=== PATIENT | female | born 1955 | race Caucasian/White ===

== ENCOUNTER 2016-11-04 12:27 | Inpatient (IN) ==
[2016-11-04] MEDS ORDERED: Ipratropium/Albuterol Neb 3 ML IH ONE (12:43)
[2016-11-04] MEDS ORDERED: methylPREDNISolone 125 MG/2 ML VIAL IVP ONE (12:43)
[2016-11-04] MEDS ORDERED: Albuterol 2.5 MG/3 ML NEBULIZER IH ONE (12:43)
[2016-11-04] MEDS ORDERED: Ondansetron 4 MG/2 ML VIAL IVP ONE (12:43)
[2016-11-04] MEDS ORDERED: *HR* Morphine 2 MG/ML SYRINGE IVP ONE (12:43)
--- NOTE | 2016-11-04 12:47 | Emergency Department Note ---
Disposition Clinical Impression: Anemia Qualifiers: Anemia type: unspecified type Qualified Code(s): D64.9 - Anemia, unspecified Rhabdomyolysis Qualifiers: Rhabdomyolysis type: traumatic Encounter type: initial encounter Qualified Code (s): T79.6XXA - Traumatic ischemia of muscle, initial encounter Inferior pubic ramus fracture Qualifiers: Encounter type: initial encounter Fracture type: closed Laterality: left Qualified Code(s): S32.592A - Other specified fracture of left pubis, initial encounter for closed fracture Disposition: Admitted As Inpatient Condition: Good Referrals: NO,PCP [Primary Care Provider] - Forms: ED Satisfaction Letter Time of Disposition: 16:36 Fall HPI - General Chief Complaint: ED Fall Stated Complaint: Confusion,fall Time Seen by Provider: 11/04/16 12:34 Source: patient, EMS Mode of arrival: EMS Limitations: no limitations Nursing Notes Reviewed: Yes Vital Signs Reviewed: Yes - History of Present Illness HPI Narrative: 61-year-old female transported by EMS after apparently falling out of bed. History obtained from the patient is that she has chronic pain all over, her feet were hurting, she went to get out of bed and she fell last night. No loss of consciousness. Back in bed. She got up again this morning and fell again. She states she "hurts all over". Her worst pain is in her thoracic and lumbar spine area, and left hip area. No loss of consciousness. She denies head injury. Her family reported that she seemed confused. EMS states she might have been "a little confused" when they got there, but it is clear now. She admits to being "a little congested" since she fell yesterday. She admits to a nonproductive cough. Pt Subjective Complaint: fall Onset (ago): day(s) Fall From: standing Fall Witnessed: no Place Fall Occurred: home Loss of Consciousness: none Prolonged Down Time?: no Symptoms Prior to Fall: none Context: tripped/slipped Location of injury: back, other (Left hip) Severity: severe Quality: sharp Associated symptoms (after fall): Reports: other (Cough and congestion) - Related Data Home Medications Medication Instructions Recorded Confirmed Aspirin 81 mg PO DAILY 06/24/15 11/04/16 Clopidogrel [Plavix] 75 mg PO DAILY 06/24/15 11/04/16 Dicyclomine [Bentyl] 10 mg PO TID PRN 06/24/15 11/04/16 Fluticasone Propionate Nasal 1 spray NS DAILY 06/24/15 11/04/16 [Flonase] Gabapentin [Neurontin] 600 mg PO TID 06/24/15 11/04/16 Insulin ASPART [NovoLOG] 0 unit SQ TIDWM 06/24/15 11/04/16 Insulin Glargine [Lantus] 45 unit SQ BID 06/24/15 11/04/16 Methocarbamol [Robaxin] 500 mg PO Q8HR 06/24/15 11/04/16 Metoprolol [Lopressor] 100 mg PO DAILY 06/24/15 11/04/16 Omeprazole [PriLOSEC] 20 mg PO BID 06/24/15 11/04/16 Paroxetine HCl [Paroxetine] 40 mg PO DAILY 06/24/15 11/04/16 HYDROcodone/Acet 10/325 mg [[place] 1 tab PO Q6HR 11/04/16 11/04/16 10-325 mg] Allergies Allergy/AdvReac Type Severity Reaction Status Date / Time Penicillins [PCN] Allergy Hives Verified 06/24/15 22:07 All systems ED: reviewed and negative except as stated. Constitutional: Denies: fever, chills Eyes: Denies: vision change ENT ED: Denies: ear pain, throat pain Cardiovascular: Denies: chest pain Respiratory: Reports: cough, wheezes. Denies: sputum production Gastrointestinal: Denies: abdominal pain, nausea, vomiting, diarrhea Genitourinary: Denies: urgency, dysuria, frequency Musculoskeletal: Reports: as per HPI (Left hip), back pain (Thoracic and lumbar) Integumentary: Denies: abrasion Neurological: Denies: weakness, numbness, paresthesias Fall PMH - Past Medical History Medical history: Reports: arthritis, cancer, CHF, COPD, DVT, diabetes, hyperlipidemia, hypertension, myocardial infarction, other Psychiatric history: Reports: anxiety, depression - Social History Smoking Status: Light tobacco smoker Alcohol use: Reports: none Drug use: Reports: none Physical Exam - General Limitations: no limitations General appearance: alert, in no apparent distress - Head Head exam: atraumatic, normocephalic - Eye Eye exam: Present: PERRL, EOMI. Absent: scleral icterus, conjunctival injection - ENT ENT exam: normal oropharynx, mucous membranes moist, TM's normal bilaterally - Neck Neck exam: Present: normal inspection, full ROM, trachea midline. Absent: tenderness - Respiratory Respiratory exam: Present: wheezes (Mild bilateral expiratory), other (No rales or rhonchi). Absent: respiratory distress - Cardiovascular Cardiovascular exam: Present: regular rate, normal rhythm, normal heart sounds - Abdominal Exam Abdominal exam: Present: soft, Non-Tender, other (Obese) - Rectal Exam Rectal exam: Present: normal inspection, normal rectal tone, hemorrhoids. Absent: black stool, bloody stool, fecal impaction, mass, tenderness - Extremities Exam Extremities exam: Present: normal inspection, full ROM, tenderness (Left lateral hip. Pain on range of motion left hip. No deformity present.), normal capillary refill. Absent: pedal edema - Back Exam Back exam: Present: tenderness (Diffuse mid and lower thoracic and upper lumbar tenderness, poorly localized. Range of motion is limited secondary to pain. Limited flexion rotation.) - Neurological Exam Neurological exam: Present: alert, oriented X3, CN II-XII intact, reflexes normal. Absent: motor sensory deficit - Psychiatric Psychiatric exam: Present: normal affect, normal mood - Skin Skin exam: Present: warm, dry, intact, normal color Course - Reevaluation(s) Reevaluation #1: Low hemoglobin results returned. Her hemoglobin was 10.7 and June 2015. Her hemoglobin was 7.8 on 09/20/16. It is 6.9 today. Her BUNs was normal 27/12/16 , they were 13 and 0.97 respectively. Her CPK came back significantly elevated today. Her BUN/creatinine are elevated. IV fluids were initiated, a bolus and maintenance fluids. 2 units of packed red blood cells were ordered. A rectal exam was done and a stool Hemoccult was sent to the lab. Time: 14:43 Reevaluation #2: Stress test results with patient. Discussed treatment plan and admission with patient. She is agreeable with treatment plan. I spoke with Dr. Blanchard. He is agreeable with admission. Time: 16:34 Vital Signs Temperature 98.6 F 11/04/16 12:31 Pulse Rate 83 11/04/16 12:31 Respiratory Rate 18 11/04/16 12:31 Blood Pressure 131/85 11/04/16 12:31 O2 Sat by Pulse Oximetry 96 11/04/16 12:31 Temperature 98.6 F 11/04/16 16:10 Pulse Rate 88 11/04/16 16:10 Respiratory Rate 16 11/04/16 16:10 Blood Pressure 124/59 11/04/16 16:10 O2 Sat by Pulse Oximetry 98 11/04/16 16:10 Oxygen Delivery Oxygen Delivery Nasal Cannula Fall - MDM Narrative Medical decision making narrative: Differential includes but is not limited to fracture, contusion, dislocation, bronchitis, COPD exacerbation, pneumonia, congestive heart failure, head injury Evidence of fracture in her thoracic or lumbar spine. She does have a in P her pubic ramus fracture on the left. Her BUN/creatinine creatinine are elevated from her baseline, they were normal in early September. This could be related to an elevated CPK, possibly from being down on the floor longer than she reports. This could represent rhabdomyolysis. Radiographically she has no effusion and some increase vascularization. Clinically she does not have congestive heart failure. In light of her elevated CPK and increased creatinine I did go ahead and initiate hydration. I ordered 2 units of packed red blood cells. I spoke with the hospitalist, Dr. Blanchard. He is agreeable with admission, monitoring, continued hydration, transfusion of blood. - Lab Data Lab results reviewed: Yes I reviewed the patient's lab results. Result diagrams: 11/04/16 13:25 11/04/16 13:25 Lab Results 11/04/16 11/04/16 11/04/16 Range/Units 13:25 13:25 13:25 WBC 9.9 (4.3-11.1) K/mcL RBC 3.28 L (3.82-4.97) M/mcL Hgb 6.9 L (11.5-15.4) g/dL Hct 24.0 L (35.3-44.9) % MCV 73.2 L (83.0-100.0) fL MCH 21.0 L (28.0-33.3) pg MCHC 28.8 L (31.6-35.5) g/dL RDW 18.1 H (11.5-14.5) % Plt Count 480 H (140-400) K/mcL MPV 9.2 L (9.4-12.4) fL Immature Gran % 0.5 (0-4) % Seg Neutrophils % 72.8 % Lymphocytes % 16.1 % Monocytes % 8.2 % Eosinophils % 2.0 % Basophils % 0.4 % Neutrophils # 7.2 (1.6-8.9) K/mcL Lymphocytes # 1.6 (0.6-4.6) K/mcL Monocytes # 0.8 (0.0-1.3) K/mcL Eosinophils # 0.2 (0.0-0.6) K/mcL Basophils # 0.0 (0.0-0.2) K/mcL Platelet Estimate Slight increase H (Normal) Hypochromasia Present A (Not Present) Anisocytosis 1+ A (Not Present) Microcytosis Present A (Not Present) Tear Drop Cells 1+ A (Not Present) Ovalocytes 1+ A (Not Present) Sodium 134 L (136-145) mEq/L Potassium 4.4 (3.5-4.5) mEq/L Chloride 102 (98-109) mEq/L Carbon Dioxide 21 (19-29) mEq/L BUN 28 H (7-20) mg/dL Creatinine 2.16 H (0.57-1.11) mg/dL Est GFR ( Amer) 28 L (> 60) Est GFR (Non-Af Amer) 23 L (> 60) BUN/Creatinine Ratio 13 (6-26) Glucose 54 L (70-99) mg/dL Calculated Osmolality 281 (280-300) Calcium 9.5 (8.6-10.8) mg/dL Total Bilirubin 0.3 (0.2-1.2) mg/dL AST 35 H (5-34) Units/L ALT 18 (0-55) Units/L Alkaline Phosphatase 99 (38-126) Units/L Creatine Kinase (29-168) Units/L Troponin I 0.08 H* (0-0.03) ng/mL B-Natriuretic Peptide (0-100) pg/mL Serum Total Protein 6.9 (6.0-8.3) g/dL Albumin 3.6 (3.5-5.0) g/dL Globulin 3.3 (2.4-3.5) g/dL Albumin/Globulin Ratio 1.1 (1.1-2.2) Urine Color (Yellow) Urine Clarity (Clear) Urine pH (5.0-8.0) pH Units Ur Specific [place] (1.010-1.025) Urine Protein (Neg-Trace) mg/dL Urine Glucose (UA) (Normal) mg/dL Urine Ketones (Negative) mg/dL Urine Blood (Negative) Urine Nitrite (Negative) Urine Bilirubin (Negative) Urine Urobilinogen (Normal) mg/dL Ur Leukocyte Esterase (Negative) Urine Microscopic WBC (0-3) per hpf Ur Squamous Epith Cells (None-Few) per lpf Hyaline Casts (None-Few) per lpf Urine Mucus (Few) Ur Culture Indicated? (NO) Stool Occult Blood (Negative) Blood Type Antibody Screen Crossmatch 11/04/16 11/04/16 11/04/16 Range/Units 13:25 13:25 14:50 WBC (4.3-11.1) K/mcL RBC (3.82-4.97) M/mcL Hgb (11.5-15.4) g/dL Hct (35.3-44.9) % MCV (83.0-100.0) fL MCH (28.0-33.3) pg MCHC (31.6-35.5) g/dL RDW (11.5-14.5) % Plt Count (140-400) K/mcL MPV (9.4-12.4) fL Immature Gran % (0-4) % Seg Neutrophils % % Lymphocytes % % Monocytes % % Eosinophils % % Basophils % % Neutrophils # (1.6-8.9) K/mcL Lymphocytes # (0.6-4.6) K/mcL Monocytes # (0.0-1.3) K/mcL Eosinophils # (0.0-0.6) K/mcL Basophils # (0.0-0.2) K/mcL Platelet Estimate (Normal) Hypochromasia (Not Present) Anisocytosis (Not Present) Microcytosis (Not Present) Tear Drop Cells (Not Present) Ovalocytes (Not Present) Sodium (136-145) mEq/L Potassium (3.5-4.5) mEq/L Chloride (98-109) mEq/L Carbon Dioxide (19-29) mEq/L BUN (7-20) mg/dL Creatinine (0.57-1.11) mg/dL Est GFR ( Amer) (> 60) Est GFR (Non-Af Amer) (> 60) BUN/Creatinine Ratio (6-26) Glucose (70-99) mg/dL Calculated Osmolality (280-300) Calcium (8.6-10.8) mg/dL Total Bilirubin (0.2-1.2) mg/dL AST (5-34) Units/L ALT (0-55) Units/L Alkaline Phosphatase (38-126) Units/L Creatine Kinase 1524 H (29-168) Units/L Troponin I (0-0.03) ng/mL B-Natriuretic Peptide 302 H (0-100) pg/mL Serum Total Protein (6.0-8.3) g/dL Albumin (3.5-5.0) g/dL Globulin (2.4-3.5) g/dL Albumin/Globulin Ratio (1.1-2.2) Urine Color (Yellow) Urine Clarity (Clear) Urine pH (5.0-8.0) pH Units Ur Specific [place] (1.010-1.025) Urine Protein (Neg-Trace) mg/dL Urine Glucose (UA) (Normal) mg/dL Urine Ketones (Negative) mg/dL Urine Blood (Negative) Urine Nitrite (Negative) Urine Bilirubin (Negative) Urine Urobilinogen (Normal) mg/dL Ur Leukocyte Esterase (Negative) Urine Microscopic WBC (0-3) per hpf Ur Squamous Epith Cells (None-Few) per lpf Hyaline Casts (None-Few) per lpf Urine Mucus (Few) Ur Culture Indicated? (NO) Stool Occult Blood Negative (Negative) Blood Type Antibody Screen Crossmatch 11/04/16 11/04/16 11/04/16 Range/Units 15:00 15:00 16:01 WBC (4.3-11.1) K/mcL RBC (3.82-4.97) M/mcL Hgb (11.5-15.4) g/dL Hct (35.3-44.9) % MCV (83.0-100.0) fL MCH (28.0-33.3) pg MCHC (31.6-35.5) g/dL RDW (11.5-14.5) % Plt Count (140-400) K/mcL MPV (9.4-12.4) fL Immature Gran % (0-4) % Seg Neutrophils % % Lymphocytes % % Monocytes % % Eosinophils % % Basophils % % Neutrophils # (1.6-8.9) K/mcL Lymphocytes # (0.6-4.6) K/mcL Monocytes # (0.0-1.3) K/mcL Eosinophils # (0.0-0.6) K/mcL Basophils # (0.0-0.2) K/mcL Platelet Estimate (Normal) Hypochromasia (Not Present) Anisocytosis (Not Present) Microcytosis (Not Present) Tear Drop Cells (Not Present) Ovalocytes (Not Present) Sodium (136-145) mEq/L Potassium (3.5-4.5) mEq/L Chloride (98-109) mEq/L Carbon Dioxide (19-29) mEq/L BUN (7-20) mg/dL Creatinine (0.57-1.11) mg/dL Est GFR ( Amer) (> 60) Est GFR (Non-Af Amer) (> 60) BUN/Creatinine Ratio (6-26) Glucose (70-99) mg/dL Calculated Osmolality (280-300) Calcium (8.6-10.8) mg/dL Total Bilirubin (0.2-1.2) mg/dL AST (5-34) Units/L ALT (0-55) Units/L Alkaline Phosphatase (38-126) Units/L Creatine Kinase (29-168) Units/L Troponin I 0.06 H* (0-0.03) ng/mL B-Natriuretic Peptide (0-100) pg/mL Serum Total Protein (6.0-8.3) g/dL Albumin (3.5-5.0) g/dL Globulin (2.4-3.5) g/dL Albumin/Globulin Ratio (1.1-2.2) Urine Color Yellow (Yellow) Urine Clarity Clear (Clear) Urine pH 5.0 (5.0-8.0) pH Units Ur Specific [place] 1.010 (1.010-1.025) Urine Protein Negative (Neg-Trace) mg/dL Urine Glucose (UA) Normal (Normal) mg/dL Urine Ketones Negative (Negative) mg/dL Urine Blood Small H (Negative) Urine Nitrite Negative (Negative) Urine Bilirubin Negative (Negative) Urine Urobilinogen Normal (Normal) mg/dL Ur Leukocyte Esterase Negative (Negative) Urine Microscopic WBC 0-3 (0-3) per hpf Ur Squamous Epith Cells Few (None-Few) per lpf Hyaline Casts Few (None-Few) per lpf Urine Mucus Few (Few) Ur Culture Indicated? NO (NO) Stool Occult Blood (Negative) Blood Type A POSITIVE Antibody Screen NEGATIVE Crossmatch See Detail - Radiology Data Radiology results reviewed: Yes I reviewed the patient's radiology results. ITS Impressions Chest X-Ray 11/04/16 12:43 IMPRESSION: 1. Right basilar atelectasis. 2. Pulmonary vascular congestion, possible bilateral perihilar edema, suspected trace bilateral effusions, and mild cardiomegaly, suggesting pulmonary edema. 3. Small to moderate hiatal hernia. D/ / Mj Norman MD / Mj Norman MD Interpreting Provider: Mj Norman MD Head CT 11/04/16 12:43 IMPRESSION: No acute intracranial abnormality. D/ / Braeden Guevara MD / Braeden Guevara MD Interpreting Provider: Braeden Guevara MD Hip X-Ray 11/04/16 12:43 IMPRESSION: 1. New nondisplaced fracture of the left inferior pubic ramus. 2. Status post ORIF of comminuted intertrochanteric left hip fracture. The appearance is grossly stable compared to August 2016. D/ / Timmy Spencer MD / Timmy Spencer MD Interpreting Provider: Timmy Spencer MD Lumbar Spine CT 11/04/16 12:43 IMPRESSION: No acute abnormality in the lumbar spine. D/ / Tyler Hays MD / Tyler Hays MD Interpreting Provider: Tyler Hays MD Thoracic Spine CT 11/04/16 12:43 IMPRESSION: No evidence acute fracture. Moderate diffuse degenerative disc disease within the thoracic spine. Limited evaluation of the cervicothoracic junction due to patient motion artifact. D/ / 11/04/2016 15:27:34 Bhupinder Garcia MD / shruthi Interpreting Provider: Bhupinder Garcia MD - EKG Data EKG attestation: Yes I reviewed and interpreted this EKG. EKG results narrative: Sinus rhythm, rate of 81, nonspecific ST-T changes. Rhythm strip shows sinus rhythm with rate of 81, FL 147 ms, QRS 106 ms with no other ectopy as interpreted by me. This is compared to a tracing dated 03/01, with some minimal increase in flattening of T waves in the lateral leads noted today, no other changes.
[2016-11-04 13:41] LABS: Basophils % 0.4 %; Eosinophils # 0.2 K/mcL (0.0-0.6); Hemoglobin 6.9 g/dL (11.5-15.4); Immature Granulocytes % 0.5 % (0-4); Lymphocytes # 1.6 K/mcL (0.6-4.6); Lymphocytes % 16.1 %; Mean Corpuscular HGB Conc 28.8 g/dL (31.6-35.5); Mean Corpuscular Volume 73.2 fL (83.0-100.0); Mean Platelet Volume 9.2 fL (9.4-12.4); Monocytes # 0.8 K/mcL (0.0-1.3); Monocytes % 8.2 %; Neutrophils # 7.2 K/mcL (1.6-8.9); Platelet Count 480 K/mcL (140-400); Red Blood Count 3.28 M/mcL (3.82-4.97); Red Cell Distribution Width 18.1 % (11.5-14.5); Segmented Neutrophils % 72.8 %
[2016-11-04 13:59] LABS: Albumin 3.6 g/dL (3.5-5.0); Albumin/Globulin Ratio 1.1 (1.1-2.2); Bilirubin,Total 0.3 mg/dL (0.2-1.2); Calcium 9.5 mg/dL (8.6-10.8); Globulin 3.3 g/dL (2.4-3.5); Potassium 4.4 mEq/L (3.5-4.5); Total Protein 6.9 g/dL (6.0-8.3)
[2016-11-04 14:24] LABS: Anisocytosis 1+ (Not Present); Hypochromasia Present (Not Present); Microcytosis Present (Not Present); Ovalocytes 1+ (Not Present); Tear Drop Cells 1+ (Not Present)
[2016-11-04] MEDS ORDERED: 0.9 % Sodium Chloride 1,000 ML IVC ONE (14:36)
[2016-11-04] MEDS ORDERED: 0.9 % Sodium Chloride 1,000 ML IVC SCH ×2 (14:45→17:20)
[2016-11-04 16:06] LABS: Bilirubin,Urine Negative (Negative); Blood,Urine Small (Negative); Clarity,Urine Clear (Clear); Color,Urine Yellow (Yellow); Glucose,Urine (UA) Normal (Normal); Ketones,Urine Negative (Negative); Leukocyte Esterase,Urine Negative (Negative); Nitrite,Urine Negative (Negative); Protein,Urine Negative (Neg-Trace); Urobilinogen,Urine Normal (Normal)
[2016-11-04 16:27] LABS: Hyaline Casts,Urine Few per lpf (None-Few); Squamous Epithelial Cell,Urine Few per lpf (None-Few); WBC,Urine 0-3 per hpf (0-3)
[2016-11-04 16:28] LABS: Mucus,Urine Few (Few)
[2016-11-04] MEDS ORDERED: Ondansetron 4 MG/2 ML VIAL IVP PRN (17:20)
[2016-11-04] MEDS ORDERED: Naloxone 0.4 MG/ML INJ IVP PRN (17:20)
[2016-11-04] MEDS ORDERED: *HR* HYDROcodone/Acet 10/325 mg TABLET PO SCH (18:00)
[2016-11-04 18:59] LABS: Immature Reticulocyte % 34.9 % (11.0-38.0); Retculocyte # 0.06 M/mcL (0.05-0.10); Reticulocyte % 1.8 % (1.6-2.8)
--- NOTE | 2016-11-04 19:03 | Electrocardiograph Report ---
[address] [place], [place] [address] Test Date: 2016-11-04 Pat Name: Carol Jackman Department: [id number] Room: [facility] Gender: F Epilepsy Physician: [id number] : 1955 Requested By: Gabe Garza Order Number: [id number] Reading MD: Emilio Garcia MD Measurements Intervals [place] Rate: 81 P: 23 HI: 147 QRS: 31 QRSD: 106 T: 15 QT: 346 QTc: 383 Interpretive Statements SINUS RHYTHM Electronically Signed On 11-04-2016 19:01:45 EDT by Emilio Garcia MD
[2016-11-04] MEDS ORDERED: NON-FORMULARY MEDICATION 1 EACH EACH (Insulin Glargine [Lantus] 45 UNIT) SQ SCH (21:00)
[2016-11-04] MEDS: Gabapentin 300 MG CAPSULE PO SCH (21:12)
[2016-11-04] MEDS: Insulin DETEMIR 100 UNIT/ML X5UNITS SQ SCH (21:12)
[2016-11-04] MEDS: 0.9 % Sodium Chloride 1,000 ML IVC SCH (21:12)
[2016-11-04] MEDS ORDERED: 0.9 % Sodium Chloride 250 ML ONE (21:18)
[2016-11-04 21:50] LABS: Iron 13 mcg/dL (50-170)
[2016-11-04 22:11] LABS: Ferritin 14 ng/ml (5-204)
[2016-11-04 22:17] LABS: Folate 13.4 ng/mL (7.0-31.4)
[2016-11-05] MEDS: *HR* HYDROcodone/Acet 10/325 mg TABLET PO PRN ×4 (00:43→22:16)
[2016-11-05] MEDS: *HR* Enoxaparin 30 MG/0.3 ML SYRINGE SQ SCH (05:17)
[2016-11-05] MEDS: Gabapentin 300 MG CAPSULE PO SCH ×3 (08:12→19:59)
[2016-11-05] MEDS: Fluticasone Propionate Nasal 50 MCG/SPRAY BOTTLE NS SCH (08:14)
[2016-11-05] MEDS ORDERED: Aspirin 81 MG TAB.CHEW PO SCH (09:00)
[2016-11-05] MEDS: Insulin DETEMIR 100 UNIT/ML X5UNITS SQ SCH ×2 (09:44→19:59)
[2016-11-05 10:01] LABS: Calcium 9.5 mg/dL (8.6-10.8); Potassium 5.1 mEq/L (3.5-4.5)
[2016-11-05] MEDS ORDERED: *HR* FentaNYL PATCH 25 MCG PATCH TD SCH (11:00)
--- NOTE | 2016-11-05 11:00 | Internal Med History&Physical ---
Date of Encounter: 11/05/16 Time of Encounter: 10:25 Assessment and Plan (1) Inferior pubic ramus fracture Current visit: Yes Status: Acute She will be given scheduled and prn analgesics. Physical therapy and occupational therapy consultations will be ordered. Further workup will be done as needed. Qualifiers: Encounter type: initial encounter Fracture type: closed Laterality: left Qualified Code(s): S32.592A - Other specified fracture of left pubis, initial encounter for closed fracture (2) Azotemia Current visit: Yes Status: Acute Acute. Creatinine was 0.97 on 09/20/2016. Give IV fluids and monitor renal indices. (3) Vitamin D deficiency Current visit: Yes Status: Chronic Vitamin D level was 12 on 10/18/2014. We will recheck level in a.m. (4) Anemia Current visit: Yes Status: Chronic Consistent with iron deficiency. We will give iron dextran and monitor CBC. Discontinue aspirin for now and continue Plavix Qualifiers: Anemia type: iron deficiency Iron deficiency anemia type: unspecified iron deficiency Qualified Code(s): D50.9 - Iron deficiency anemia, unspecified (5) DM type 2 (diabetes mellitus, type 2) Current visit: Yes Status: Chronic Hemoglobin A1c was 7.3% on 09/20/2016. Continue Lantus/Levemir and do Accu- Cheks with SSI. Qualifiers: Diabetes mellitus complication status: without complication Diabetes mellitus truck terminal manager insulin use: with truck terminal manager use Qualified Code(s): E11.9 - Type 2 diabetes mellitus without complications; Z79.4 - shelter (current) use of insulin Internal Medicine - H&P: HPI Chief complaint: Fall and pelvic fracture Admitted From: Home Plans for Post Hospital Care: Home History of present illness: Ms. Jackman is a 61 year old female who came to emergency room stating she was attempting to get out of bed and walk and fell to the floor. She reports she lost her balance. There was no loss of consciousness. She typically walks with a walker but the walker was not at bedside. She had immediate pain in her pelvic area. She call for family members in the home who then called the squad. She was evaluated in emergency room and found to have a left inferior pubic ramus fracture. She also had azotemia and anemia. She was admitted to [facility] for ongoing care needs. Her musk skeletal history is significant for having tip fracture 2014 with ORIF. She has DJD but no known gout or osteoporosis. Her hematologic history is significant for long-standing iron deficiency anemia. She does not presently take ferrous sulfate. She takes aspirin and Plavix for CAD. She has had right breast CA diagnosed 1996 and underwent partial mastectomy which was apparently curative. She has no other blood disorders or malignancies. Past Med Surg Social Fam HX - Past Medical History Medical history: arthritis, cancer, CHF, COPD, DVT, diabetes, hyperlipidemia, hypertension, myocardial infarction, other Psychiatric history: anxiety, depression - Social History Smoking Status: Light tobacco smoker Smokeless Tobacco Status: No Alcohol use: none Drug use: none Internal Medicine - H&P: Meds Aspirin 81 mg PO DAILY 06/24/15 [History] Clopidogrel [Plavix] 75 mg PO DAILY 06/24/15 [History] Dicyclomine [Bentyl] 10 mg PO TID PRN 06/24/15 [History] Fluticasone Propionate Nasal [Flonase] 1 spray NS DAILY 06/24/15 [History] Gabapentin [Neurontin] 600 mg PO TID 06/24/15 [History] Insulin ASPART [NovoLOG] 0 unit SQ TIDWM 06/24/15 [History] Insulin Glargine [Lantus] 45 unit SQ BID 06/24/15 [History] Methocarbamol [Robaxin] 500 mg PO Q8HR 06/24/15 [History] Metoprolol [Lopressor] 100 mg PO DAILY 06/24/15 [History] Omeprazole [PriLOSEC] 20 mg PO BID 06/24/15 [History] Paroxetine HCl [Paroxetine] 40 mg PO DAILY 06/24/15 [History] HYDROcodone/Acet 10/325 mg [[place] 10-325 mg] 1 tab PO Q6HR 11/04/16 [History] Allergies Penicillins [PCN] Allergy (Verified 06/24/15 22:07) Hives All Systems PM: A 10-system review of systems was performed and is negative for pertinent findings except as documented above in the HPI. Review of systems: Gen.: Her weight has been stable at approximately 100 kg in the past year Cardiovascular: She has had 5 MIs per history. She has had 6 stents placed with her most recent heart catheter November 2015 following most recent MT. She claims she was told in the past she has CHF but echocardiograms done January and May 2014 showed normal systolic and diastolic function with LVEF of 65%. She reports chronic left leg DVT and was placed on Xarelto at one time. This was discontinued because of intestinal bleeding. She had IVC filter placed. She continues to use aspirin and Plavix for CAD. She thinks she had pulmonary embolus in 1982. Respiratory: She smokes since age 25 never up to 1 pack per day. She had PFTs approximately 2004 without a diagnosis of COPD made. She does not wear home oxygen and has not been tested for sleep apnea. GI: She has GERD/hiatal hernia but denies disorders of her liver gallbladder or exocrine pancreas : She denies hematuria dysuria or kidney stones or other kidney or bladder disorders Neurologic: She denies large distribution strokes or seizures. Endocrine: She was diagnosed with DM 2 approximately 2001. She has hyperlipidemia but no known thyroid disease. Hematology/oncology: As per history of present illness Psychiatric: She has anxiety and depression [place] skeletal: As per history of present illness - Constitutional Vitals: Temp Pulse Resp BP Pulse Ox 99.5 F 72 18 165/76 94 11/05/16 10:46 11/05/16 10:46 11/05/16 10:46 11/05/16 10:46 11/05/16 10:46 Exam: Gen.: She is a well-developed well-nourished female appears in no severe distress at present time at rest. She does complain of significant pain on movement. HEENT: Head is atraumatic and normocephalic. Eyes: EOMI. There is no scleral icterus. Mouth: Mucosa is moist. Neck: Supple and nontender. There is no thyromegaly or adenopathy noted. Heart: Regular without murmurs gallops or ectopics Lungs: No wheezes or crackles are heard. Abdomen: Soft and nontender. No masses or guarding are noted. Extremities: There is no cyanosis edema or clubbing noted. Dorsalis pedis and posterior tibial pulses are 1-2 over 2 bilaterally. She has DJD changes of her hands. Neurologic: Mental status: She is talkative and a good historian. Cranial nerves: Smile is symmetric. Forehead wrinkles bilaterally. Tongue protrudes midline. EOMI. Motor: There is no pronator drift. Cerebellar: Finger to nose intact bilaterally. Skin: Warm and dry Internal Med - H&P Results - Labs CBC & Chem 7: 11/04/16 13:25 11/05/16 08:50 Labs: BMP 11/05/16 08:50 Sodium 137 Potassium 5.1 H Chloride 106 Carbon Dioxide 19 BUN 25 H Creatinine 1.12 H Glucose 200 H Calcium 9.5
[2016-11-05 11:41] LABS: Basophils % 0.1 %; Hematocrit 30.4 % (35.3-44.9); Immature Granulocytes % 0.7 % (0-4); Lymphocytes # 0.9 K/mcL (0.6-4.6); Lymphocytes % 8.1 %; Mean Corpuscular HGB Conc 29.6 g/dL (31.6-35.5); Mean Corpuscular Hemoglobin 22.7 pg (28.0-33.3); Mean Corpuscular Volume 76.8 fL (83.0-100.0); Mean Platelet Volume 8.9 fL (9.4-12.4); Monocytes # 0.8 K/mcL (0.0-1.3); Monocytes % 6.6 %; Neutrophils # 9.6 K/mcL (1.6-8.9); Platelet Count 503 K/mcL (140-400); Red Blood Count 3.96 M/mcL (3.82-4.97); Segmented Neutrophils % 84.5 %
[2016-11-05] MEDS: ALPRAZolam 0.5 MG TABLET PO PRN ×2 (11:56→22:20)
[2016-11-05] MEDS ORDERED: SODIUM CHLORIDE 0.9% IVPB ONE (12:30)
[2016-11-05] MEDS ORDERED: IRON DEXTRAN COMPLEX IVPB ONE (12:30)
[2016-11-05] MEDS ORDERED: D5% in Water 1,000 ML IVC PRN (12:36)
[2016-11-05] MEDS ORDERED: *HR* Dextrose 50 % in Water (Syg) 50 ML SYRINGE IVP PRN (12:36)
[2016-11-05] MEDS ORDERED: Dextrose Gel 15 GM PO PRN ×2 (12:36)
[2016-11-05] MEDS: Insulin LISPRO 300 UNITS/3 ML VIAL SQ SCH ×2 (16:10→19:57)
[2016-11-06 05:05] LABS: Basophils % 0.2 %; Eosinophils # 0.1 K/mcL (0.0-0.6); Eosinophils % 0.3 %; Hematocrit 28.6 % (35.3-44.9); Hemoglobin 8.7 g/dL (11.5-15.4); Lymphocytes # 2.1 K/mcL (0.6-4.6); Lymphocytes % 12.8 %; Mean Corpuscular HGB Conc 30.4 g/dL (31.6-35.5); Mean Corpuscular Hemoglobin 22.5 pg (28.0-33.3); Mean Corpuscular Volume 73.9 fL (83.0-100.0); Mean Platelet Volume 9.1 fL (9.4-12.4); Monocytes # 1.4 K/mcL (0.0-1.3); Monocytes % 8.6 %; Neutrophils # 12.4 K/mcL (1.6-8.9); Nucleated Red Blood Cells 0.2 /100 WBC (0); Platelet Count 550 K/mcL (140-400); Red Blood Count 3.87 M/mcL (3.82-4.97); Red Cell Distribution Width 18.7 % (11.5-14.5); Segmented Neutrophils % 77.1 %
[2016-11-06 05:53] LABS: BUN/Creatinine Ratio 25 (6-26); Blood Urea Nitrogen 23 mg/dL (7-20); Calcium 9.5 mg/dL (8.6-10.8); Carbon Dioxide 21 mEq/L (19-29); Chloride 103 mEq/L (98-109); Osmolality,Calculated 280 (280-300); Potassium 4.3 mEq/L (3.5-4.5); Sodium 135 mEq/L (136-145); eGFR For African Americans > 60 (> 60); eGFR For Non-African Americans > 60 (> 60)
[2016-11-06 06:00] LABS: Glucose 34 mg/dL (70-99)
[2016-11-06] MEDS: *HR* Enoxaparin 30 MG/0.3 ML SYRINGE SQ SCH (06:14)
[2016-11-06] MEDS: *HR* HYDROcodone/Acet 10/325 mg TABLET PO PRN ×2 (06:15→14:46)
[2016-11-06] MEDS: Insulin LISPRO 300 UNITS/3 ML VIAL SQ SCH ×4 (07:51→19:26)
[2016-11-06] MEDS: Fluticasone Propionate Nasal 50 MCG/SPRAY BOTTLE NS SCH (07:58)
[2016-11-06] MEDS: Gabapentin 300 MG CAPSULE PO SCH ×3 (07:58→19:45)
[2016-11-06] MEDS: 0.9 % Sodium Chloride 1,000 ML IVC SCH (08:01)
[2016-11-06] MEDS: Insulin DETEMIR 100 UNIT/ML X5UNITS SQ SCH ×2 (10:23→19:45)
--- NOTE | 2016-11-06 10:43 | Internal Med Progress Note ---
Date of Encounter: 11/06/16 Time of Encounter: 10:25 - Assessment and plan (1) Inferior pubic ramus fracture Current Visit: Yes Status: Acute Assessment and plan: November 06. Continue analgesics and therapy as ordered. Qualifiers: Encounter type: initial encounter Fracture type: closed Laterality: left Qualified Code(s): S32.592A - Other specified fracture of left pubis, initial encounter for closed fracture (2) Azotemia Current Visit: Yes Status: Acute Assessment and plan: November 06. Improved today. Creatinine has decreased to 0.91 with estimated GFR greater than 60. (3) Vitamin D deficiency Current Visit: Yes Status: Chronic Assessment and plan: November 06. Repeat vitamin D level is pending. (4) Anemia Current Visit: Yes Status: Chronic Assessment and plan: November 06. Remain off aspirin but continue Plavix. She has received IV iron dextran. We will monitor CBC. Qualifiers: Anemia type: iron deficiency Iron deficiency anemia type: unspecified iron deficiency Qualified Code(s): D50.9 - Iron deficiency anemia, unspecified (5) DM type 2 (diabetes mellitus, type 2) Current Visit: Yes Status: Chronic Assessment and plan: November 06. Continue Lantus/Levemir and Accu-Cheks with SSI. Qualifiers: Diabetes mellitus complication status: without complication Diabetes mellitus long term care pharmacist insulin use: with long term care pharmacist use Qualified Code(s): E11.9 - Type 2 diabetes mellitus without complications; Z79.4 - terminal clerk (current) use of insulin (6) Leukocytosis Current Visit: Yes Status: Acute Assessment and plan: November 06. WBC has risen to 16.1 K with 77.1 segs. Will check chest x-ray and recheck labs in a.m. Qualifiers: Leukocytosis type: unspecified Qualified Code(s): D72.829 - Elevated white blood cell count, unspecified - Subjective Interval history: November 06. She has pain in her right upper chest area. Nursing staff reported her IV infiltrated as iron dextran infusion was completing yesterday. - Constitutional Vitals: Temp Pulse Resp BP Pulse Ox 98.0 F 68 16 152/61 94 11/06/16 10:10 11/06/16 10:10 11/06/16 10:10 11/06/16 10:10 11/06/16 10:10 Exam: She has discoloration in her upper anterior shoulder and anterior chest extending into her right upper outer breast area. There does not appear to be infection. Her lungs show a few scattered rhonchi. Heart is regular without murmurs gallops or ectopics. I reviewed her medications and lab results. Internal Medicine: Result - Labs CBC & Chem 7: 11/06/16 04:07 11/06/16 04:07 Labs: Short CBC 11/05/16 11/06/16 Range/Units 11:14 04:07 WBC 11.4 H 16.1 H (4.3-11.1) K/mcL Hgb 9.0 L D 8.7 L (11.5-15.4) g/dL Hct 30.4 L 28.6 L (35.3-44.9) % Plt Count 503 H 550 H (140-400) K/mcL Neutrophils # 9.6 H 12.4 H (1.6-8.9) K/mcL BMP 11/06/16 04:07 Sodium 135 L Potassium 4.3 Chloride 103 Carbon Dioxide 21 BUN 23 H Creatinine 0.91 Glucose 34 L* Calcium 9.5 Consult Discharge Plan - Plan Referrals: NO,PCP [Primary Care Provider] - 1 week
[2016-11-06] MEDS: ALPRAZolam 0.5 MG TABLET PO PRN (14:46)
[2016-11-06] MEDS: Methocarbamol 500 MG TABLET PO PRN (14:46)
[2016-11-07] MEDS: ALPRAZolam 0.5 MG TABLET PO PRN ×2 (00:32→08:44)
[2016-11-07] MEDS: *HR* HYDROcodone/Acet 10/325 mg TABLET PO PRN ×2 (00:32→07:45)
[2016-11-07 05:10] LABS: Basophils % 0.5 %; Eosinophils # 0.2 K/mcL (0.0-0.6); Eosinophils % 2.3 %; Hematocrit 28.4 % (35.3-44.9); Hemoglobin 8.4 g/dL (11.5-15.4); Immature Granulocytes % 0.5 % (0-4); Lymphocytes % 23.1 %; Mean Corpuscular HGB Conc 29.6 g/dL (31.6-35.5); Mean Corpuscular Hemoglobin 22.4 pg (28.0-33.3); Mean Corpuscular Volume 75.7 fL (83.0-100.0); Mean Platelet Volume 9.2 fL (9.4-12.4); Monocytes % 10.9 %; Neutrophils # 5.5 K/mcL (1.6-8.9); Platelet Count 491 K/mcL (140-400); Red Blood Count 3.75 M/mcL (3.82-4.97); Red Cell Distribution Width 19.7 % (11.5-14.5); Segmented Neutrophils % 62.7 %
[2016-11-07 05:30] LABS: BUN/Creatinine Ratio 18 (6-26); Blood Urea Nitrogen 14 mg/dL (7-20); Calcium 9.5 mg/dL (8.6-10.8); Carbon Dioxide 25 mEq/L (19-29); Chloride 105 mEq/L (98-109); Glucose 53 mg/dL (70-99); Osmolality,Calculated 286 (280-300); Potassium 4.3 mEq/L (3.5-4.5); Sodium 139 mEq/L (136-145); eGFR For African Americans > 60 (> 60); eGFR For Non-African Americans > 60 (> 60)
[2016-11-07] MEDS ORDERED: *HR* Enoxaparin 40 MG/0.4 ML SYRINGE SQ SCH (06:00)
[2016-11-07] MEDS: Insulin LISPRO 300 UNITS/3 ML VIAL SQ SCH ×2 (07:32→12:07)
[2016-11-07] MEDS: Gabapentin 300 MG CAPSULE PO SCH (07:45)
[2016-11-07] MEDS: Methocarbamol 500 MG TABLET PO PRN (08:44)
--- NOTE | 2016-11-07 10:24 | Discharge Summary ---
Date of Encounter: 11/07/16 Time of Encounter: 10:10 - Discharge Diagnosis (1) Inferior pubic ramus fracture Priority: Primary Status: Acute Qualifiers: Encounter type: initial encounter Fracture type: closed Laterality: left Qualified Code(s): S32.592A - Other specified fracture of left pubis, initial encounter for closed fracture (2) Azotemia Priority: Secondary Status: Resolved (3) Vitamin D deficiency Priority: Secondary Status: Chronic (4) Anemia Priority: Secondary Status: Chronic Qualifiers: Anemia type: iron deficiency Iron deficiency anemia type: unspecified iron deficiency Qualified Code(s): D50.9 - Iron deficiency anemia, unspecified (5) DM type 2 (diabetes mellitus, type 2) Priority: Secondary Status: Chronic Qualifiers: Diabetes mellitus complication status: without complication Diabetes mellitus senior living insulin use: with senior living use Qualified Code(s): E11.9 - Type 2 diabetes mellitus without complications; Z79.4 - [facility] (current) use of insulin (6) Leukocytosis Priority: Secondary Status: Resolved Qualifiers: Leukocytosis type: unspecified Qualified Code(s): D72.829 - Elevated white blood cell count, unspecified - Discharge Medications Prescriptions: Bumetanide [Bumex] 0.5 mg PO DAILY 30 Days Cholecalciferol (D-3) [Vitamin D] 1,000 unit PO DAILY 30 Days Lisinopril [Zestril] 10 mg PO DAILY 365 Days Metoprolol XL (24 HR) Succ [Toprol XL] 100 mg PO DAILY 365 Days Home Medications: Clopidogrel [Plavix] 75 mg PO DAILY 06/24/15 [History] Dicyclomine [Bentyl] 10 mg PO TID PRN 06/24/15 [History] Fluticasone Propionate Nasal [Flonase] 1 spray NS DAILY 06/24/15 [History] Gabapentin [Neurontin] 600 mg PO TID 06/24/15 [History] Insulin ASPART [NovoLOG] 0 unit SQ TIDWM 06/24/15 [History] Insulin Glargine [Lantus] 45 unit SQ BID 06/24/15 [History] Methocarbamol [Robaxin] 500 mg PO Q8HR 06/24/15 [History] Paroxetine HCl [Paroxetine] 40 mg PO DAILY 06/24/15 [History] ALPRAZolam [Xanax 0.5 MG Tablet] 0.5 mg PO Q4H PRN #0 tablet 11/07/16 [Rx] Bumetanide [Bumex] 0.5 mg PO DAILY 30 Days 11/07/16 [Rx] Cholecalciferol (D-3) [Vitamin D] 1,000 unit PO DAILY 30 Days 11/07/16 [Rx] FentaNYL PATCH [Duragesic] 25 mcg TD Q72H patch.td72 11/07/16 [Rx] HYDROcodone/Acet 10/325 mg [[place] 10-325 mg] 1 tab PO Q6HR PRN #0 11/07/16 [Rx] Lisinopril [Zestril] 10 mg PO DAILY 365 Days 11/07/16 [Rx] Metoprolol XL (24 HR) Succ [Toprol XL] 100 mg PO DAILY 365 Days 11/07/16 [Rx] Omeprazole [PriLOSEC] 20 mg PO DAILY #0 11/07/16 [Rx] Allergies/Adverse Reactions: Allergies Penicillins [PCN] Allergy (Verified 06/24/15 22:07) Hives Date of admission: 11/04/16 16:59 Primary care physician: Janie Cadena CNP Consults: 11/05/16 10:47 Consult to Occupational Therapy [CONS] Routine Comment: Evaluate, develop and implement POC Reason for Consult: Fall, pelvic fracture - Patient Status Disposition: Transfer Hospital Swing Bed Condition: Good Functional capacity at discharge: uses cane/walker Overall status at discharge: patient is progressing back to baseline - Discharge Instructions - Diet and Activity Activity: as per physical therapy Diet: diabetic diet Hospital course: Ms. Jackman is a 61 year old female who came to emergency room stating she was attempting to get out of bed and walk and fell to the floor. She reports she lost her balance. There was no loss of consciousness. She typically walks with a walker but the walker was not at bedside. She had immediate pain in her pelvic area. She call for family members in the home who then called the squad. She was evaluated in emergency room and found to have a left inferior pubic ramus fracture. She also had azotemia and anemia. She was admitted to [facility] for ongoing care needs. Initial orders were written by the emergency room physician. I saw her on November 05 and performed the history and physical. She was given scheduled and prn analgesics for pain control. She had physical therapy and occupational therapy evaluation with ongoing interventions. She made satisfactory progress. It was felt to benefit from swing bed stay for ongoing therapy interventions. She was given IV fluids and her azotemia resolved with BUN and creatinine being 14 and 0.78 respectively on the day of discharge. Her BMP peptide kaela 20,004 and 48 the day of discharge so she will be started on low-dose Bumex and lisinopril. She will be changed from Lopressor to Toprol- XL. Vitamin D level returned slightly low at 26. She will be started on vitamin D supplement. Anemia testing showed iron 13, ferritin 14, B12 306, and folate 13.4. She was given iron dextran IV. There was some extravasation of the iron dextran subcutaneously with discoloration of the skin around the infusion site in the right anterior deltoid area dissecting distally into the right upper outer breast area. I told her the discoloration might fade but might not completely resolve. On November 07 arrangements were complete for her to be discharged into swing bed. - Time Spent with Patient Total time spent providing and/or coordinating discharge services: - Constitutional Vitals: Temp Pulse Resp BP Pulse Ox 99.1 F 81 18 168/70 94 11/07/16 06:24 11/07/16 06:24 11/07/16 06:24 11/07/16 06:24 11/07/16 06:24
[2016-11-07] MEDS ORDERED: Insulin DETEMIR 100 UNIT/ML X5UNITS SQ SCH (11:03)
[2016-11-07 11:04] VITALS: BP 141/67
[2016-11-07] MEDS: Insulin DETEMIR 100 UNIT/ML X5UNITS SQ SCH (11:09)
[2016-11-07] MEDS: Fluticasone Propionate Nasal 50 MCG/SPRAY BOTTLE NS SCH (11:09)
== END 2016-11-07 11:45 | disposition other institution (70) | DRG 536 ==
LOC: EMEROOPIK 12:27 → INPPIK 16:59
PROVIDERS: ADMIT Internal Medicine; ATTEND Internal Medicine

== ENCOUNTER 2016-11-07 12:10 | Inpatient (IN) ==
[2016-11-07] MEDS ORDERED: Dextrose Gel 15 GM PO PRN ×2 (12:46)
[2016-11-07] MEDS ORDERED: D5% in Water 1,000 ML IVC PRN (12:46)
[2016-11-07] MEDS ORDERED: *HR* Dextrose 50 % in Water (Syg) 50 ML SYRINGE IVP PRN (12:46)
[2016-11-07] MEDS: Methocarbamol 500 MG TABLET PO SCH ×2 (16:12→22:28)
[2016-11-07] MEDS: Gabapentin 300 MG CAPSULE PO SCH ×2 (16:12→20:12)
[2016-11-07] MEDS: *HR* HYDROcodone/Acet 10/325 mg TABLET PO PRN ×2 (16:13→22:27)
[2016-11-07] MEDS: Insulin LISPRO 300 UNITS/3 ML VIAL SQ SCH ×2 (18:07→20:13)
[2016-11-07] MEDS: Insulin DETEMIR 100 UNIT/ML X5UNITS SQ SCH (20:12)
[2016-11-08 06:02] LABS: Basophils % 0.4 %; Eosinophils # 0.4 K/mcL (0.0-0.6); Eosinophils % 5.1 %; Hematocrit 32.2 % (35.3-44.9); Hemoglobin 9.7 g/dL (11.5-15.4); Immature Granulocytes % 1.1 % (0-4); Lymphocytes # 1.9 K/mcL (0.6-4.6); Lymphocytes % 22.5 %; Mean Corpuscular HGB Conc 30.1 g/dL (31.6-35.5); Mean Corpuscular Hemoglobin 22.6 pg (28.0-33.3); Mean Corpuscular Volume 75.1 fL (83.0-100.0); Mean Platelet Volume 8.9 fL (9.4-12.4); Monocytes # 0.8 K/mcL (0.0-1.3); Monocytes % 9.9 %; Neutrophils # 5.1 K/mcL (1.6-8.9); Platelet Count 523 K/mcL (140-400); Red Blood Count 4.29 M/mcL (3.82-4.97); Red Cell Distribution Width 20.6 % (11.5-14.5)
[2016-11-08 06:07] LABS: INR 1.1; Prothrombin Time 11.6 Seconds (9.4-12.1)
[2016-11-08 06:09] LABS: Activated Partial Thrombo Time 27.3 Seconds (26.0-36.0)
[2016-11-08 06:19] LABS: BUN/Creatinine Ratio 16 (6-26); Blood Urea Nitrogen 11 mg/dL (7-20); Carbon Dioxide 28 mEq/L (19-29); Chloride 105 mEq/L (98-109); Osmolality,Calculated 294 (280-300); Sodium 144 mEq/L (136-145); eGFR For African Americans > 60 (> 60); eGFR For Non-African Americans > 60 (> 60)
[2016-11-08 06:25] LABS: Glucose 37 mg/dL (70-99)
[2016-11-08] MEDS: Insulin LISPRO 300 UNITS/3 ML VIAL SQ SCH ×4 (07:42→20:55)
[2016-11-08] MEDS: *HR* HYDROcodone/Acet 10/325 mg TABLET PO PRN ×3 (08:25→22:13)
[2016-11-08] MEDS: Gabapentin 300 MG CAPSULE PO SCH ×3 (08:25→19:54)
[2016-11-08] MEDS: Metoprolol XL (24 HR) Succ 50 MG TAB.ER.24H PO SCH (08:26)
[2016-11-08] MEDS: Fluticasone Propionate Nasal 50 MCG/SPRAY BOTTLE NS SCH (08:26)
[2016-11-08] MEDS: Cholecalciferol (D-3) 1,000 UNIT TABLET PO SCH (08:26)
[2016-11-08] MEDS: Bumetanide 1 MG TABLET PO SCH (08:27)
[2016-11-08] MEDS: Methocarbamol 500 MG TABLET PO SCH ×2 (08:27→15:43)
[2016-11-08] MEDS ORDERED: *HR* FentaNYL PATCH 25 MCG PATCH TD SCH (09:00)
[2016-11-08] MEDS: Insulin DETEMIR 100 UNIT/ML X5UNITS SQ SCH ×2 (09:32→20:55)
--- NOTE | 2016-11-08 14:21 | Internal Med Progress Note ---
Date of Encounter: 11/08/16 Time of Encounter: 11:25 - Assessment and plan (1) Inferior pubic ramus fracture Current Visit: No Status: Acute Assessment and plan: November 08. Continue therapy interventions. Qualifiers: Encounter type: initial encounter Fracture type: closed Laterality: left Qualified Code(s): S32.592A - Other specified fracture of left pubis, initial encounter for closed fracture (2) Anemia Current Visit: No Status: Chronic Assessment and plan: November 08. We will monitor CBC. Qualifiers: Anemia type: iron deficiency Iron deficiency anemia type: unspecified iron deficiency Qualified Code(s): D50.9 - Iron deficiency anemia, unspecified (3) Azotemia Current Visit: No Status: Resolved Assessment and plan: November 08. Resolved during acute care stay. Monitor renal indices. (4) Vitamin D deficiency Current Visit: No Status: Chronic Assessment and plan: November 08. Vitamin D level was 26. Will continue vitamin D supplement (5) DM type 2 (diabetes mellitus, type 2) Current Visit: No Status: Chronic Assessment and plan: November 08. She had low blood sugar this morning. We will reduce Levemir dose. Qualifiers: Diabetes mellitus complication status: without complication Diabetes mellitus residential insulin use: with residential use Qualified Code(s): E11.9 - Type 2 diabetes mellitus without complications; Z79.4 - senior care (current) use of insulin - Subjective Interval history: November 08. She was hospitalized in acute care November 02- after presenting with a left inferior pubic ramus fracture from a fall at home. She had evaluation and ongoing intervention by physical and occupational therapists with improvement. It was felt she would benefit from swing bed stay prior to returning to independent living. Azotemia resolved IV fluids and medication adjustment. She received iron dextran infusion for iron deficiency anemia. She has no complaints today and feels better overall. - Constitutional Vitals: Temp Pulse Resp BP Pulse Ox 98.7 F 65 18 176/85 95 11/07/16 18:22 11/08/16 07:00 11/08/16 07:00 11/08/16 07:00 11/08/16 07:00 Exam: She has just ambulated from the bathroom with a Rollator walker. She is pleasant and in no acute distress. Her affect is bright and cheerful. I reviewed her medications and lab results. Internal Medicine: Result - Labs CBC & Chem 7: 11/08/16 05:32 11/08/16 05:32 Labs: Short CBC 11/08/16 Range/Units 05:32 WBC 8.3 (4.3-11.1) K/mcL Hgb 9.7 L (11.5-15.4) g/dL Hct 32.2 L (35.3-44.9) % Plt Count 523 H (140-400) K/mcL Neutrophils # 5.1 (1.6-8.9) K/mcL BMP 11/08/16 05:32 Sodium 144 Potassium 4.0 Chloride 105 Carbon Dioxide 28 BUN 11 Creatinine 0.69 Glucose 37 L* Calcium 10.0 - ABG Interpretation ABG results: PT/INR, D-dimer PT 11.6 Seconds (9.4-12.1) 11/08/16 05:32 Consult Discharge Plan - Plan Referrals: Janie Cadena, COMMERCIAL CREDIT SPECIALIST [Primary Care Provider] - 1 week
[2016-11-08] MEDS ORDERED: Nicotine 14 MG PATCH.TD24 TD SCH (15:15)
[2016-11-08] MEDS: Nicotine 21 MG PATCH.TD24 TD SCH (15:43)
[2016-11-08] MEDS: ALPRAZolam 0.5 MG TABLET PO PRN (22:13)
[2016-11-09] MEDS: Methocarbamol 500 MG TABLET PO SCH ×2 (00:10→07:46)
[2016-11-09] MEDS: *HR* HYDROcodone/Acet 10/325 mg TABLET PO PRN ×2 (04:07→10:45)
[2016-11-09] MEDS: ALPRAZolam 0.5 MG TABLET PO PRN (04:26)
[2016-11-09] MEDS: Bumetanide 1 MG TABLET PO SCH (07:46)
[2016-11-09] MEDS: Metoprolol XL (24 HR) Succ 50 MG TAB.ER.24H PO SCH (07:47)
[2016-11-09] MEDS: Gabapentin 300 MG CAPSULE PO SCH (07:47)
[2016-11-09] MEDS: Cholecalciferol (D-3) 1,000 UNIT TABLET PO SCH (07:47)
[2016-11-09] MEDS: Insulin LISPRO 300 UNITS/3 ML VIAL SQ SCH (07:47)
[2016-11-09] MEDS: Fluticasone Propionate Nasal 50 MCG/SPRAY BOTTLE NS SCH (07:47)
[2016-11-09] MEDS: Nicotine 21 MG PATCH.TD24 TD SCH (09:34)
[2016-11-09] MEDS: Insulin DETEMIR 100 UNIT/ML X5UNITS SQ SCH (09:34)
[2016-11-09 10:00] VITALS: BP 146/53
--- NOTE | 2016-11-09 10:02 | Discharge Summary ---
Date of Encounter: 11/09/16 Time of Encounter: 09:50 - Discharge Diagnosis (1) Inferior pubic ramus fracture Priority: Primary Status: Acute Qualifiers: Encounter type: initial encounter Fracture type: closed Laterality: left Qualified Code(s): S32.592A - Other specified fracture of left pubis, initial encounter for closed fracture (2) Anemia Priority: Secondary Status: Chronic Qualifiers: Anemia type: iron deficiency Iron deficiency anemia type: unspecified iron deficiency Qualified Code(s): D50.9 - Iron deficiency anemia, unspecified (3) Azotemia Priority: Secondary Status: Resolved (4) Vitamin D deficiency Priority: Secondary Status: Chronic (5) DM type 2 (diabetes mellitus, type 2) Priority: Secondary Status: Chronic Qualifiers: Diabetes mellitus complication status: without complication Diabetes mellitus skilled nursing insulin use: with skilled nursing use Qualified Code(s): E11.9 - Type 2 diabetes mellitus without complications; Z79.4 - [facility] (current) use of insulin - Discharge Medications Prescriptions: Bumetanide [Bumex] 0.5 mg PO DAILY #15 tablet FentaNYL PATCH [Duragesic] 25 mcg TD Q72H #2 patch.td72 HYDROcodone/Acet 10/325 mg [[place] 10-325 mg] 1 tab PO Q4H PRN #28 tablet PRN Reason: Pain Lisinopril [Zestril] 10 mg PO DAILY #30 tablet Metoprolol Succinate 100 mg PO DAILY #30 tab.er.24h Home Medications: Clopidogrel [Plavix] 75 mg PO DAILY 06/24/15 [History] Dicyclomine [Bentyl] 10 mg PO TID PRN 06/24/15 [History] Fluticasone Propionate Nasal [Flonase] 1 spray NS DAILY 06/24/15 [History] Gabapentin [Neurontin] 600 mg PO TID 06/24/15 [History] Insulin ASPART [NovoLOG] 0 unit SQ TIDWM 06/24/15 [History] Insulin Glargine [Lantus] 40 unit SQ BID 06/24/15 [History] Methocarbamol [Robaxin] 500 mg PO Q8HR 06/24/15 [History] Paroxetine HCl [Paroxetine] 40 mg PO DAILY 06/24/15 [History] Cholecalciferol (D-3) [Vitamin D] 1,000 unit PO DAILY 30 Days 11/07/16 [Rx] Omeprazole [PriLOSEC] 20 mg PO DAILY #0 11/07/16 [Rx] Bumetanide [Bumex] 0.5 mg PO DAILY #15 tablet 11/09/16 [Rx] FentaNYL PATCH [Duragesic] 25 mcg TD Q72H #2 patch.td72 11/09/16 [Rx] HYDROcodone/Acet 10/325 mg [[place] 10-325 mg] 1 tab PO Q4H PRN #28 tablet [Rx] Lisinopril [Zestril] 10 mg PO DAILY #30 tablet 11/09/16 [Rx] Metoprolol Succinate 100 mg PO DAILY #30 tab.er.24h 11/09/16 [Rx] Allergies/Adverse Reactions: Allergies Penicillins [PCN] Allergy (Verified 06/24/15 22:07) Hives Date of admission: 11/07/16 12:28 Primary care physician: Janie Cadena CNP Consults: 11/07/16 12:27 Consult to Occupational Therapy [CONS] Routine Comment: Eval, Develop, and Implement P.O.C. Reason for Consult: Eval, Develop, and Implement P.O.C. Consult to Physical Therapy [CONS] Routine Comment: Eval, Develop, and Implement P.O.C. Reason for Consult: Eval, Develop, and Implement P.O.C. pt had a fall with pelvic fx Consult to [employer] [CONS] Routine Reason for SW Consult: D/C planning - Patient Status Disposition: Home Health Service Functional capacity at discharge: uses cane/walker Overall status at discharge: patient is progressing back to baseline - Discharge Instructions Follow Up With: Janie Cadena CNP [Primary Care Provider] - 1 week - Diet and Activity Activity: as per physical therapy Diet: advance to your usual diet Hospital course: Ms. Jackman is a 61 year old female who was hospitalized in acute care November 02- after presenting with a left inferior pubic ramus fracture from a fall at home. She had evaluation and ongoing intervention by physical and occupational therapists with improvement. It was felt she would benefit from swing bed stay prior to returning to independent living. Azotemia resolved with IV fluids and medication adjustment. She received iron dextran infusion for iron deficiency anemia. She had no new problems develop in swing bed. On November 09 she stated she wished to be discharged home. She stated she was in minimal pain from her inferior pubic ramus fracture. She did have some discomfort in her right lateral chest area where the iron dextran infusion had caused some extravasation. I reminded her the pigmentation might fade but not completely resolve but the pain should resolve over time. She will be given a few days of fentanyl and Percocet for pain control upon discharge. She will follow with her PCP Janie Cadena CNP within 1 week. She will have home health services ordered. - Time Spent with Patient Total time spent providing and/or coordinating discharge services: - Constitutional Vitals: Temp Pulse Resp BP Pulse Ox 97.7 F 97 16 157/78 93 11/09/16 07:09 11/09/16 07:09 11/09/16 07:09 11/09/16 07:09 11/09/16 07:09
--- NOTE | 2016-11-09 10:09 | Physician Discharge Referral ---
Home Health/Hosp Referral Info Transfer to: Home Health Attending Provider: Santo Provider in Charge Post Discharge: PCP (Janie Cadena CNP) - Diagnosis (1) Inferior pubic ramus fracture Priority: Primary Status: Acute (2) Anemia Priority: Secondary Status: Chronic (3) Azotemia Priority: Secondary Status: Resolved (4) Vitamin D deficiency Priority: Secondary Status: Chronic (5) DM type 2 (diabetes mellitus, type 2) Priority: Secondary Status: Chronic - Respiratory Orders Smoking Cessation: Smoking cessation has been advised. For more information, call the [place] Tobacco Quit Line at 6-458-QFOW-NOW. - Diet/Nutrition Diet/Nutrition Orders: No Concentrated Sweets - Activity Activity Orders: Walker - Services Needed Following services are medically necessary services: Nursing, Home Health Aide, Physical Therapy, Occupational Therapy - Transfer Medications Prescriptions: Bumetanide [Bumex] 0.5 mg PO DAILY #15 tablet FentaNYL PATCH [Duragesic] 25 mcg TD Q72H #2 patch.td72 HYDROcodone/Acet 10/325 mg [[place] 10-325 mg] 1 tab PO Q4H PRN #28 tablet PRN Reason: Pain Lisinopril [Zestril] 10 mg PO DAILY #30 tablet Metoprolol Succinate 100 mg PO DAILY #30 tab.er.24h Home Medications: Clopidogrel [Plavix] 75 mg PO DAILY 06/24/15 [History] Dicyclomine [Bentyl] 10 mg PO TID PRN 06/24/15 [History] Fluticasone Propionate Nasal [Flonase] 1 spray NS DAILY 06/24/15 [History] Gabapentin [Neurontin] 600 mg PO TID 06/24/15 [History] Insulin ASPART [NovoLOG] 0 unit SQ TIDWM 06/24/15 [History] Insulin Glargine [Lantus] 40 unit SQ BID 06/24/15 [History] Methocarbamol [Robaxin] 500 mg PO Q8HR 06/24/15 [History] Paroxetine HCl [Paroxetine] 40 mg PO DAILY 06/24/15 [History] Cholecalciferol (D-3) [Vitamin D] 1,000 unit PO DAILY 30 Days 11/07/16 [Rx] Omeprazole [PriLOSEC] 20 mg PO DAILY #0 11/07/16 [Rx] Bumetanide [Bumex] 0.5 mg PO DAILY #15 tablet 11/09/16 [Rx] FentaNYL PATCH [Duragesic] 25 mcg TD Q72H #2 patch.td72 11/09/16 [Rx] HYDROcodone/Acet 10/325 mg [[place] 10-325 mg] 1 tab PO Q4H PRN #28 tablet [Rx] Lisinopril [Zestril] 10 mg PO DAILY #30 tablet 11/09/16 [Rx] Metoprolol Succinate 100 mg PO DAILY #30 tab.er.24h 11/09/16 [Rx] Allergies/Adverse Reactions: Allergies Penicillins [PCN] Allergy (Verified 06/24/15 22:07) Hives Certification: Further, I certify that my clinical findings support that this patient is homebound (i.e. absences from home require considerable and taxing effort and are for medical reasons or hoahaoism services or infrequently or short duration when for other reasons) because: Homebound Reason: Leaving home requires considerable and taxing effort due to condition (Pain secondary to pelvic fracture) Attestation: My signature below is to certify that this patient is under my care and that I, or nurse practitioner, or a physician's help desk assistant working with me, has a face-to -face encounter with this patient.
== END 2016-11-09 11:27 | disposition home health service (06) | DRG 561 ==
LOC: INPPIK 12:28
PROVIDERS: ADMIT Internal Medicine; ATTEND Internal Medicine

== ENCOUNTER 2019-02-02 15:55 | Inpatient (IN) ==
[2019-02-02] MEDS ORDERED: 0.9 % Sodium Chloride 1,000 ML IVC ONE ×2 (15:58→16:09)
--- NOTE | 2019-02-02 15:58 | Emergency Department Note ---
Disposition Clinical Impression: Altered mental status, Hypomagnesemia Disposition: Admitted As Inpatient Condition: Good Referrals: Janie Cadena, REGI [Primary Care Provider] - Forms: ED Satisfaction Letter Time of Disposition: 20:47 Altered Mental Status HPI - General Chief Complaint: ED Altered Mental Status Stated Complaint: AMS Time Seen by Provider: 02/02/19 15:58 Source: patient, EMS Mode of arrival: EMS Limitations: altered mental status Nursing Notes Reviewed: Yes Vital Signs Reviewed: Yes - History of Present Illness HPI Narrative: 63-year-old female presents today with altered mental status. She is brought in by ambulance. She states she has had a cough lately. Patient has no other complaints at this time. She knows what her name is but does not know where she has her when it is. Last known well is unknown as family arrived last night and found her confused at that time. She is not maintained confusion area she did eat last night. She has not taken any of her medications. EMS reported that she did end up taking her Keppra today or her focal seizures. MD complaint: altered mental status, confusion - Related Data Home Medications Medication Instructions Recorded Confirmed Atorvastatin [Lipitor] 40 mg PO HS 01/07/17 12/02/18 Cyclobenzaprine HCl 5 mg PO BID PRN 05/18/18 12/02/18 Gabapentin [Neurontin] 600 mg PO TID 05/18/18 12/02/18 Insulin Glargine,Hum.rec.anlog 41 unit SQ BID 05/18/18 12/02/18 [Basaglar Kwikpen U-100] LevETIRAcetam [Keppra] 500 mg PO BID 05/18/18 12/02/18 Metoprolol Succinate [Toprol Xl] 25 - 50 mg PO QAM 05/18/18 12/02/18 Omeprazole [PriLOSEC] 40 mg PO QAM 05/18/18 12/02/18 Paroxetine HCl [Paxil] 40 mg PO QAM 05/18/18 12/02/18 Amitriptyline [Elavil] 50 mg PO HS 12/02/18 12/02/18 Aspirin [Adult Aspirin Regimen] 81 mg PO QAM 12/02/18 12/02/18 Clopidogrel [Plavix] 75 mg PO HS 12/02/18 12/02/18 Ferrous Gluconate 324 mg PO DAILY 12/02/18 12/02/18 Furosemide [Lasix] 20 mg PO QAM 12/02/18 12/02/18 Insulin ASPART [Novolog Flexpen] 0 unit SQ TIDAC 12/02/18 12/02/18 Levocetirizine Dihydrochloride 5 mg PO QPM PRN 12/02/18 12/02/18 [Allergy Relief (Xyzal)] Metoprolol Succinate [Toprol Xl] 50 mg PO QPM 12/02/18 12/02/18 Allergies Allergy/AdvReac Type Severity Reaction Status Date / Time Penicillins [PCN] Allergy Hives Verified 05/18/18 09:16 rivaroxaban [From Xarelto] Allergy See Verified 05/18/18 09:16 Comments morphine AdvReac See Verified 05/18/18 09:16 Comments NSAIDS (Non-Steroidal AdvReac Palpitation Verified 05/18/18 09:16 Anti-Inflamma s oxycodone [Oxycodone] AdvReac Confusion Verified 05/20/18 05:25 Review of Systems: All other systems are negative except as noted/marked Chart generated with voice recognition software Nursing notes reviewed Old records reviewed Past Medical History - Past Medical History Attestation: Yes The following information was validated with the patient. Source: old records reviewed, nursing notes reviewed Medical history: Reports: arthritis, cancer, CHF, COPD, coronary artery disease, DVT, diabetes, GERD, GI bleed, hyperlipidemia, hypertension, myocardial infarction, pulmonary embolus, seizures, valvular heart disease, other Surgical history: Reports: angioplasty/stent, breast surgery, , cancer surgery, hip replacement, other, IVC filter Psychiatric history: Reports: anxiety, depression ANATOMIC PATHOLOGY ASSISTANT history: Reports: no ANATOMIC PATHOLOGY ASSISTANT history - Social History Smoking Status: Current every day smoker Smokeless Tobacco Status: No Alcohol use: Reports: none Drug use: Reports: none Physical Exam General: NAD, VSS Head: normocephalic, atraumatic Eyes: EOMI, PERRLA mouth: moist mucous membranes Neck: NO CLA, Supple Chest wall: normal rise, no crepitus, no deformity noted Lungs: moving air well, coarse breath sounds no right upper lung [place] clear with coughing Heart: RRR, blowing murmur Abd: soft, nontender, BS normal : deferred MSK: strength equal in all four extremities Ext: moves all four extremities, no obvious deformities Skin: cap refill normal, warm, dry neuro : CN2-12 grossly intact, A&Ox3 Psych: normal affect, not anxious Course Vital Signs O2 Sat by Pulse Oximetry 96 02/02/19 15:56 Temperature 97.3 F L 02/02/19 15:58 Pulse Rate 111 02/02/19 20:27 Respiratory Rate 22 02/02/19 20:27 Blood Pressure 178/93 02/02/19 20:27 O2 Sat by Pulse Oximetry 96 02/02/19 20:27 Oxygen Delivery Oxygen Delivery Room Air Altered Mental Status - MDM Narrative Medical decision making narrative: 63-year-old female who presents today with altered mental status. Family states that they found her this way the night before. Last known well was unknown. Patient has no complaints at this time. Workup initially shows some mild hypomagnesemia but otherwise no acute abnormalities. Her head CT did not show any evidence of this stroke or bleeding. Her chest x-ray is negative. I requested a urinalysis. The nurses been struggling to get a urine from her for couple of hours. She is refusing to void for us and when they tried to do a st raight catheter she is fighting and combative with the nursing staff. I did order some Haldol and Ativan to calm her down so that we can get the urinalysis because at this point her disposition head and is on whether she has an infection in her urine. Her white count is normal she is afebrile making a urinary tract infection less likely but given her age group we cannot completely rule this out without urine. Urine did not show any signs of infection. Patient remains confused and disoriented. I do not this is a TIA or hypertension related or if this is drug related. There is some history of drug abuse per family report. Because of this, I do think patient needs to be monitored overnight. He spoke with Dr. Blanchard who agreed to accept the patient for evaluation overnight and reevaluation in the morning. Hydralazine did seem to help her blood pressure came down to 170 systolic. I w ould not want to drop her any more quickly than that. She will probably need some medications overnight. - Medical Records Medical records reviewed: Yes I reviewed the patient's medical records. - Lab Data Lab results reviewed: Yes I reviewed the patient's lab results. Result diagrams: 02/02/19 16:34 02/02/19 16:34 Lab Results 02/02/19 02/02/19 02/02/19 Range/Units 16:34 16:34 16:34 WBC 6.3 (4.3-11.1) K/mcL RBC 4.50 (3.82-4.97) M/mcL Hgb 11.1 L (11.5-15.4) g/dL Hct 36.1 (35.3-44.9) % MCV 80.2 L (83.0-100.0) fL MCH 24.7 L (28.0-33.3) pg MCHC 30.7 L (31.6-35.5) g/dL RDW 23.9 H (11.5-14.5) % Plt Count 262 (140-400) K/mcL MPV 9.4 (9.4-12.4) fL Immature Gran % 0.5 (0-4) % Seg Neutrophils % 76.8 % Lymphocytes % 15.5 % Monocytes % 5.6 % Eosinophils % 1.1 % Basophils % 0.5 % Neutrophils # 4.8 (1.6-8.9) K/mcL Lymphocytes # 1.0 (0.6-4.6) K/mcL Monocytes # 0.4 (0.0-1.3) K/mcL Eosinophils # 0.1 (0.0-0.6) K/mcL Basophils # 0.0 (0.0-0.2) K/mcL Platelet Estimate Normal (Normal) Microcytosis Present A (Not Present) PT 10.4 (9.4-12.1) Seconds INR 0.9 APTT 31.7 (26.0-36.0) Seconds Sodium 138 (136-145) mEq/L Potassium 4.0 (3.5-5.1) mEq/L Chloride 103 (98-107) mEq/L Carbon Dioxide 27 (23-29) mEq/L BUN 9 (8-23) mg/dL Creatinine 0.75 (0.60-1.20) mg/dL Est GFR ( Amer) > 60 (> 60) Est GFR (Non-Af Amer) > 60 (> 60) BUN/Creatinine Ratio 12 (6-26) Glucose 215 H (70-105) mg/dL Calculated Osmolality 291 (280-300) Lactic Acid (0.5-2.2) mmol/L Calcium 9.1 (8.6-10.3) mg/dL Magnesium 1.4 L (1.6-2.6) mg/dL Total Bilirubin 0.4 (0.3-1.0) mg/dL Direct Bilirubin 0.1 (0.0-0.2) mg/dL Indirect Bilirubin 0.3 (0.0-1.2) mg/dL AST 13 (13-39) Units/L ALT 11 (7-52) Units/L Alkaline Phosphatase 127 H (34-104) Units/L Ammonia (16-53) mcmol/L Troponin I < 0.03 (< 0.04) ng/mL Serum Total Protein 7.0 (6.4-8.9) g/dL Albumin 3.7 (3.5-5.7) g/dL Globulin 3.3 (2.4-3.5) g/dL Albumin/Globulin Ratio 1.1 (1.1-2.2) TSH 1.239 (0.340-5.600) mcIU/mL Urine Color (Yellow) Urine Clarity (Clear) Urine pH (5.0-8.0) pH Units Ur Specific [place] (1.010-1.025) Urine Protein (Neg-Trace) mg/dL Urine Glucose (UA) (Normal) mg/dL Urine Ketones (Negative) mg/dL Urine Blood (Negative) Urine Nitrite (Negative) Urine Bilirubin (Negative) Urine Urobilinogen (Normal) mg/dL Ur Leukocyte Esterase (Negative) Urine Microscopic RBC (0-3) per hpf Ur Squamous Epith Cells (None-Few) per lpf Ur Culture Indicated? (NO) Ur Drug Screen Interp Ethyl Alcohol < 10 (Less than 10) mg/dL 02/02/19 02/02/19 02/02/19 Range/Units 16:34 16:34 19:54 WBC (4.3-11.1) K/mcL RBC (3.82-4.97) M/mcL Hgb (11.5-15.4) g/dL Hct (35.3-44.9) % MCV (83.0-100.0) fL MCH (28.0-33.3) pg MCHC (31.6-35.5) g/dL RDW (11.5-14.5) % Plt Count (140-400) K/mcL MPV (9.4-12.4) fL Immature Gran % (0-4) % Seg Neutrophils % % Lymphocytes % % Monocytes % % Eosinophils % % Basophils % % Neutrophils # (1.6-8.9) K/mcL Lymphocytes # (0.6-4.6) K/mcL Monocytes # (0.0-1.3) K/mcL Eosinophils # (0.0-0.6) K/mcL Basophils # (0.0-0.2) K/mcL Platelet Estimate (Normal) Microcytosis (Not Present) PT (9.4-12.1) Seconds INR APTT (26.0-36.0) Seconds Sodium (136-145) mEq/L Potassium (3.5-5.1) mEq/L Chloride (98-107) mEq/L Carbon Dioxide (23-29) mEq/L BUN (8-23) mg/dL Creatinine (0.60-1.20) mg/dL Est GFR ( Amer) (> 60) Est GFR (Non-Af Amer) (> 60) BUN/Creatinine Ratio (6-26) Glucose (70-105) mg/dL Calculated Osmolality (280-300) Lactic Acid 0.7 (0.5-2.2) mmol/L Calcium (8.6-10.3) mg/dL Magnesium (1.6-2.6) mg/dL Total Bilirubin (0.3-1.0) mg/dL Direct Bilirubin (0.0-0.2) mg/dL Indirect Bilirubin (0.0-1.2) mg/dL AST (13-39) Units/L ALT (7-52) Units/L Alkaline Phosphatase (34-104) Units/L Ammonia 34 (16-53) mcmol/L Troponin I (< 0.04) ng/mL Serum Total Protein (6.4-8.9) g/dL Albumin (3.5-5.7) g/dL Globulin (2.4-3.5) g/dL Albumin/Globulin Ratio (1.1-2.2) TSH (0.340-5.600) mcIU/mL Urine Color Yellow (Yellow) Urine Clarity Clear (Clear) Urine pH 6.5 (5.0-8.0) pH Units Ur Specific [place] 1.025 (1.010-1.025) Urine Protein >=300 H (Neg-Trace) mg/dL Urine Glucose (UA) 250 H (Normal) mg/dL Urine Ketones 40 H (Negative) mg/dL Urine Blood Small H (Negative) Urine Nitrite Negative (Negative) Urine Bilirubin Negative (Negative) Urine Urobilinogen Normal (Normal) mg/dL Ur Leukocyte Esterase Negative (Negative) Urine Microscopic RBC 3-5 H (0-3) per hpf Ur Squamous Epith Cells Few (None-Few) per lpf Ur Culture Indicated? NO (NO) Ur Drug Screen Interp Ethyl Alcohol (Less than 10) mg/dL 02/02/19 Range/Units 19:54 WBC (4.3-11.1) K/mcL RBC (3.82-4.97) M/mcL Hgb (11.5-15.4) g/dL Hct (35.3-44.9) % MCV (83.0-100.0) fL MCH (28.0-33.3) pg MCHC (31.6-35.5) g/dL RDW (11.5-14.5) % Plt Count (140-400) K/mcL MPV (9.4-12.4) fL Immature Gran % (0-4) % Seg Neutrophils % % Lymphocytes % % Monocytes % % Eosinophils % % Basophils % % Neutrophils # (1.6-8.9) K/mcL Lymphocytes # (0.6-4.6) K/mcL Monocytes # (0.0-1.3) K/mcL Eosinophils # (0.0-0.6) K/mcL Basophils # (0.0-0.2) K/mcL Platelet Estimate (Normal) Microcytosis (Not Present) PT (9.4-12.1) Seconds INR APTT (26.0-36.0) Seconds Sodium (136-145) mEq/L Potassium (3.5-5.1) mEq/L Chloride (98-107) mEq/L Carbon Dioxide (23-29) mEq/L BUN (8-23) mg/dL Creatinine (0.60-1.20) mg/dL Est GFR ( Amer) (> 60) Est GFR (Non-Af Amer) (> 60) BUN/Creatinine Ratio (6-26) Glucose (70-105) mg/dL Calculated Osmolality (280-300) Lactic Acid (0.5-2.2) mmol/L Calcium (8.6-10.3) mg/dL Magnesium (1.6-2.6) mg/dL Total Bilirubin (0.3-1.0) mg/dL Direct Bilirubin (0.0-0.2) mg/dL Indirect Bilirubin (0.0-1.2) mg/dL AST (13-39) Units/L ALT (7-52) Units/L Alkaline Phosphatase (34-104) Units/L Ammonia (16-53) mcmol/L Troponin I (< 0.04) ng/mL Serum Total Protein (6.4-8.9) g/dL Albumin (3.5-5.7) g/dL Globulin (2.4-3.5) g/dL Albumin/Globulin Ratio (1.1-2.2) TSH (0.340-5.600) mcIU/mL Urine Color (Yellow) Urine Clarity (Clear) Urine pH (5.0-8.0) pH Units Ur Specific [place] (1.010-1.025) Urine Protein (Neg-Trace) mg/dL Urine Glucose (UA) (Normal) mg/dL Urine Ketones (Negative) mg/dL Urine Blood (Negative) Urine Nitrite (Negative) Urine Bilirubin (Negative) Urine Urobilinogen (Normal) mg/dL Ur Leukocyte Esterase (Negative) Urine Microscopic RBC (0-3) per hpf Ur Squamous Epith Cells (None-Few) per lpf Ur Culture Indicated? (NO) Ur Drug Screen Interp See Below Ethyl Alcohol (Less than 10) mg/dL - Radiology Data Radiology results reviewed: Yes I reviewed the patient's radiology results. EXAMINATION: CT OF THE HEAD WITHOUT CONTRAST 02/02/2019 4:52 pm TECHNIQUE: CT of the head was performed without the administration of intravenous contrast. Dose modulation, iterative reconstruction, and/or weight based adjustment of the mA/kV was utilized to reduce the radiation dose to as low as reasonably achievable. COMPARISON: 02/17/2018 HISTORY: ORDERING SYSTEM PROVIDED HISTORY: altered mental status FINDINGS: Motion limited study, despite repeat acquisition. BRAIN/VENTRICLES: There is no acute intracranial hemorrhage, mass effect or midline shift. No abnormal extra-axial fluid collection. The tejada-white differentiation is maintained without evidence of an acute infarct. There is no evidence of hydrocephalus. ORBITS: The visualized portion of the orbits demonstrate no acute abnormality. SINUSES: Peripheral mucosal thickening of the paranasal sinuses. Mastoids are clear bilaterally. Evidence of previous sinus surgery. SOFT TISSUES/SKULL: No acute abnormality of the visualized skull or soft tissues. CT/CT head/brain wo con IMPRESSION: Motion limited study. No obvious acute intracranial abnormality. Chronic paranasal sinus disease. D/ / Efraín Gilbert MD / Efraín Gilbert MD Interpreting Provider: Efraín Gilbert MD INATION: ONE XRAY VIEW OF THE CHEST 02/02/2019 4:52 pm COMPARISON: 05/19/2018 HISTORY: ORDERING SYSTEM PROVIDED HISTORY: altered mental status FINDINGS: The lungs are without acute focal process. There is no effusion or pneumothorax. The cardiomediastinal silhouette is stable. The osseous structures are stable. Probable large hiatal hernia. XR/XR chest 1V portable IMPRESSION: No acute process. Probable unchanged large hiatal hernia D/ / Mj Denney MD / Mj Denney MD Interpreting Provider: Mj Denney MD - EKG Data EKG attestation: Yes I reviewed and interpreted this EKG. EKG results narrative: EKG interpreted by myself as a sinus rhythm with rate 98 a QTC of [address] elevation TPA Checklist - LKW: 3-4.5 hrs Add. Warnings/Precautions Patient/family understanding: The patient/family members have been counseled and understood the risk, benefit, and alternatives of treatment.
[2019-02-02] MEDS ORDERED: *HR* Metoprolol 5 MG/5 ML VIAL IVP ONE ×2 (16:08→22:13)
[2019-02-02 16:51] LABS: Basophils % 0.5 %; Eosinophils # 0.1 K/mcL (0.0-0.6); Eosinophils % 1.1 %; Hematocrit 36.1 % (35.3-44.9); Hemoglobin 11.1 g/dL (11.5-15.4); Immature Granulocytes % 0.5 % (0-4); Lymphocytes % 15.5 %; Mean Corpuscular HGB Conc 30.7 g/dL (31.6-35.5); Mean Corpuscular Hemoglobin 24.7 pg (28.0-33.3); Mean Corpuscular Volume 80.2 fL (83.0-100.0); Mean Platelet Volume 9.4 fL (9.4-12.4); Monocytes # 0.4 K/mcL (0.0-1.3); Monocytes % 5.6 %; Neutrophils # 4.8 K/mcL (1.6-8.9); Platelet Count 262 K/mcL (140-400); Red Cell Distribution Width 23.9 % (11.5-14.5); Segmented Neutrophils % 76.8 %; White Blood Count 6.3 K/mcL (4.3-11.1)
[2019-02-02 16:53] LABS: INR 0.9; Prothrombin Time 10.4 Seconds (9.4-12.1)
[2019-02-02 16:55] LABS: Activated Partial Thrombo Time 31.7 Seconds (26.0-36.0)
[2019-02-02 17:01] LABS: Alanine Aminotransferase 11 Units/L (7-52); Albumin 3.7 g/dL (3.5-5.7); Albumin/Globulin Ratio 1.1 (1.1-2.2); Alkaline Phosphatase 127 Units/L (34-104); Aspartate Amino Transferase 13 Units/L (13-39); BUN/Creatinine Ratio 12 (6-26); Bilirubin,Direct 0.1 mg/dL (0.0-0.2); Bilirubin,Indirect 0.3 mg/dL (0.0-1.2); Bilirubin,Total 0.4 mg/dL (0.3-1.0); Blood Urea Nitrogen 9 mg/dL (8-23); Calcium 9.1 mg/dL (8.6-10.3); Carbon Dioxide 27 mEq/L (23-29); Chloride 103 mEq/L (98-107); Ethanol < 10 mg/dL (Less than 10); Globulin 3.3 g/dL (2.4-3.5); Glucose 215 mg/dL (70-105); Magnesium 1.4 mg/dL (1.6-2.6); Osmolality,Calculated 291 (280-300); Sodium 138 mEq/L (136-145); eGFR For African Americans > 60 (> 60); eGFR For Non-African Americans > 60 (> 60)
[2019-02-02 17:03] LABS: Troponin I < 0.03 ng/mL (< 0.04)
[2019-02-02 17:17] LABS: Thyroid Stimulating Hormone 1.239 mcIU/mL (0.340-5.600)
[2019-02-02 18:01] LABS: Microcytosis Present (Not Present); Platelet Estimate Normal (Normal)
[2019-02-02] MEDS ORDERED: Lidocaine Jelly 6ml 1 APPL/6 ML JEL.PF.APP MM ONE (18:02)
[2019-02-02] MEDS ORDERED: Haloperidol Lactate 5 MG/ML VIAL IM ONE (18:10)
[2019-02-02] MEDS ORDERED: *HR* LORazepam 2 MG/ML VIAL IVP ONE ×2 (18:10→22:14)
[2019-02-02 20:05] LABS: Bilirubin,Urine Negative (Negative); Blood,Urine Small (Negative); Clarity,Urine Clear (Clear); Color,Urine Yellow (Yellow); Glucose,Urine (UA) 250 mg/dL (Normal); Ketones,Urine 40 mg/dL (Negative); Leukocyte Esterase,Urine Negative (Negative); Nitrite,Urine Negative (Negative); PH,Urine 6.5 pH Units (5.0-8.0); Protein,Urine >=300 mg/dL (Neg-Trace); Specific Gravity,Urine 1.025 (1.010-1.025); Urobilinogen,Urine Normal (Normal)
[2019-02-02 20:13] LABS: Squamous Epithelial Cell,Urine Few per lpf (None-Few)
[2019-02-02 20:51] LABS: Amphetamine Screen,Urine Negative ng/mL (Cutoff=1000); Barbiturate Screen,Urine Negative ng/mL (Cutoff=200); Benzodiazepines Screen,Urine Negative ng/mL (Cutoff=200); Cannabinoid Screen,Urine Negative ng/mL (Cutoff = 50); Cocaine Screen,Urine Negative ng/mL (Cutoff= 300); Opiate Screen,Urine Positive ng/mL (Cutoff=300); Phencyclidine Screen,Urine Negative ng/mL (Cutoff=25)
[2019-02-02] MEDS ORDERED: Naloxone 0.4 MG/ML INJ IVP PRN (21:57)
[2019-02-02] MEDS ORDERED: Acetaminophen 325 MG TABLET PO PRN (21:57)
[2019-02-02] MEDS ORDERED: traMADol 50 MG TABLET PO PRN (22:11)
[2019-02-02] MEDS: 0.9 % Sodium Chloride 1,000 ML IVC SCH (22:25)
[2019-02-03] MEDS: levETIRAcetam 250 MG TABLET PO SCH ×4 (00:01→23:04)
[2019-02-03] MEDS ORDERED: *HR* Metoprolol 5 MG/5 ML VIAL IVP ONE ×3 (03:41→18:58)
[2019-02-03] MEDS ORDERED: *HR* LORazepam 2 MG/ML VIAL IVP ONE (03:42)
[2019-02-03 06:32] LABS: Basophils # 0.1 K/mcL (0.0-0.2); Basophils % 0.6 %; Eosinophils # 0.1 K/mcL (0.0-0.6); Eosinophils % 0.8 %; Hematocrit 38.8 % (35.3-44.9); Immature Granulocytes % 0.5 % (0-4); Lymphocytes # 1.7 K/mcL (0.6-4.6); Mean Corpuscular HGB Conc 30.9 g/dL (31.6-35.5); Mean Corpuscular Hemoglobin 24.2 pg (28.0-33.3); Mean Corpuscular Volume 78.4 fL (83.0-100.0); Mean Platelet Volume 9.2 fL (9.4-12.4); Monocytes # 0.7 K/mcL (0.0-1.3); Monocytes % 7.8 %; Neutrophils # 5.9 K/mcL (1.6-8.9); Platelet Count 311 K/mcL (140-400); Red Blood Count 4.95 M/mcL (3.82-4.97); Red Cell Distribution Width 23.9 % (11.5-14.5); Segmented Neutrophils % 70.3 %; White Blood Count 8.4 K/mcL (4.3-11.1)
[2019-02-03 06:52] LABS: BUN/Creatinine Ratio 9 (6-26); Blood Urea Nitrogen 6 mg/dL (8-23); Calcium 9.3 mg/dL (8.6-10.3); Carbon Dioxide 24 mEq/L (23-29); Chloride 100 mEq/L (98-107); Glucose 195 mg/dL (70-105); Osmolality,Calculated 285 (280-300); Potassium 3.8 mEq/L (3.5-5.1); Sodium 136 mEq/L (136-145); eGFR For African Americans > 60 (> 60); eGFR For Non-African Americans > 60 (> 60)
[2019-02-03] MEDS: Furosemide 20 MG TABLET PO SCH ×2 (08:00→08:10)
[2019-02-03] MEDS: Metoprolol XL (24 HR) Succ 25 MG TAB.ER.24H PO SCH ×2 (08:00→08:11)
--- NOTE | 2019-02-03 09:04 | Electrocardiograph Report ---
[place] [id number] Test Date: 2019-02-02 Pat Name: Carol Jackman Department: EDP-14 Room: [facility] Gender: F Clinical Administrative Coordinator: : 1955 Requested By: Davina Zarate Order Number: [id number] Reading MD: Emilio Garcia Measurements Intervals [place] Rate: 98 P: 75 [place]: 181 QRS: 61 QRSD: 103 T: 27 QT: 350 QTc: 447 Interpretive Statements Sinus rhythm Electronically Signed On 02-03-2019 9:02:52 EDT by Emilio Garcia
[2019-02-03] MEDS: *HR* LORazepam 2 MG/ML VIAL IVP PRN (09:11)
--- NOTE | 2019-02-03 10:19 | Internal Med History&Physical ---
Date of Encounter: 02/03/19 Time of Encounter: 10:05 Assessment and Plan (1) Altered mental status Current visit: Yes Status: Acute Drug screen tested positive for opiates. No opiates are listed on home medication list. Chest x-ray, head CT, and urinalysis in ER unremarkable. IV fluids have been started and further workup will be done as needed. Qualifiers: Altered mental status type: delirium Qualified Code(s): R41.0 - Disorientation, unspecified (2) Type 2 diabetes mellitus Current visit: No Status: Chronic Hemoglobin A1c 6.9% on 05/29/2018. Accu-Cheks will be monitored with SSI. Qualifiers: Diabetes mellitus dip tube assembler machine insulin use: unspecified dip tube assembler machine insulin use status Diabetes mellitus complication status: without complication Qualified Code(s): E11.9 - Type 2 diabetes mellitus without complications (3) Hypertension Current visit: No Status: Chronic Continue Toprol-XL and monitor blood pressure. Qualifiers: Hypertension type: essential hypertension Qualified Code(s): I10 - Essential (primary) hypertension (4) Anemia Current visit: No Status: Acute anemia testing will be ordered. Qualifiers: Anemia type: iron deficiency Iron deficiency anemia type: unspecified iron deficiency Qualified Code(s): D50.9 - Iron deficiency anemia, unspecified (5) Hypomagnesemia Current visit: Yes Status: Acute Magnesium level low at 1.4 in emergency room. IV magnesium sulfate was ordered. Internal Medicine - H&P: HPI Chief complaint: Altered mental status Admitted From: Emergency Dept Plans for Post Hospital Care: Home History of present illness: Ms. Jackman is a 63 year old female who was brought to emergency room after family found her confused at home. She reported in emergency room she has had a cough but could not give significant additional history. [facility] for [facility] care needs. She cannot give additional history at this time. Past Med Surg Social Fam HX - Past Medical History Medical history: non-contributory, arthritis, cancer, CHF, COPD, coronary artery disease, DVT, diabetes, GERD, GI bleed, hyperlipidemia, hypertension, myocardial infarction, pulmonary embolus, seizures, valvular heart disease, other Additional medical history: MRSA Pneumonia d/c 01/10/[address] [facility] Psychiatric history: anxiety, depression - Past Surgical History Surgical History: angioplasty/stent, breast surgery, , cancer surgery, hip replacement, other, IVC filter Additional surgical history: rt eye,. left hip replacement - Social History Smoking Status: Current every day smoker Smokeless Tobacco Status: No Alcohol use: none Drug use: none - Family History Mother Family Member Ethnicity: Non- Living Status: Still Living Hx Family Cardiac Disorders: Yes (HTN) Hx Family Respiratory Disorders: No Hx Family Cancer: No Hx Family GI Disorders: No Hx Family Endocrine Disorder: No Hx Family Neuromuscular Disorders: No Hx Family Neurologic Disorders: No Hx Family HEENT Disorders: No Hx Family Autoimmune Disorders: No Internal Medicine - H&P: Meds Atorvastatin [Lipitor] 40 mg PO HS 01/07/17 [History] Cyclobenzaprine HCl 5 mg PO BID PRN 05/18/18 [History] Gabapentin [Neurontin] 600 mg PO TID 05/18/18 [History] Insulin Glargine,Hum.rec.anlog [Basaglar Kwikpen U-100] 41 unit SQ BID 05/18/18 [History] LevETIRAcetam [Keppra] 500 mg PO BID 05/18/18 [History] Metoprolol Succinate [Toprol Xl] 25 - 50 mg PO QAM 05/18/18 [History] Omeprazole [PriLOSEC] 40 mg PO QAM 05/18/18 [History] Paroxetine HCl [Paxil] 40 mg PO QAM 05/18/18 [History] Amitriptyline [Elavil] 50 mg PO HS 12/02/18 [History] Aspirin [Adult Aspirin Regimen] 81 mg PO QAM 12/02/18 [History] Clopidogrel [Plavix] 75 mg PO HS 12/02/18 [History] Ferrous Gluconate 324 mg PO DAILY 12/02/18 [History] Furosemide [Lasix] 20 mg PO QAM 12/02/18 [History] Insulin ASPART [Novolog Flexpen] 0 unit SQ TIDAC 12/02/18 [History] Levocetirizine Dihydrochloride [Allergy Relief (Xyzal)] 5 mg PO QPM PRN 12/02/18 [History] Metoprolol Succinate [Toprol Xl] 50 mg PO QPM 12/02/18 [History] Allergy/AdvReac Type Severity Reaction Status Date / Time Penicillins [PCN] Allergy Hives Verified 05/18/18 09:16 rivaroxaban [From Xarelto] Allergy See Verified 05/18/18 09:16 Comments morphine AdvReac See Verified 05/18/18 09:16 Comments NSAIDS (Non-Steroidal AdvReac Palpitation Verified 05/18/18 09:16 Anti-Inflamma s oxycodone [Oxycodone] AdvReac Confusion Verified 05/20/18 05:25 All Systems PM: A 10-system review of systems was performed and is negative for pertinent findings except as documented above in the HPI. Review of systems: Review of systems from her December 2017 [facility] hospitalization were reviewed and revised as below. Patient cannot give any additional information at this time. Gen.: Her weight has decreased from 100.3 kg 11/08/2016 to 94.574 kg on admission now Cardiovascular: She has had 5 MIs per history. She has had 6 stents placed with her most recent heart catheter November 2015 following most recent [place]. She claims she was told in the past she has CHF but an echocardiogram 07/07/2017 showed LVEF of 60% There was moderate aortic stenosis. The interventricular septum thickness was elevated 1.30 cm. LV posterior wall thickness is normal at 0.80 cm. E/A ratio was 0.9. She reports chronic left leg DVT and was placed on Xarelto at one time. This was discontinued because of intestinal bleeding. She had IVC filter placed. She continues to use aspirin and Plavix for CAD. She thinks she had pulmonary embolus in 1982. Respiratory: She has smoked since age 25 never up to 1 pack per day. She had PFTs approximately 2004 without a diagnosis of COPD made. She does not wear home oxygen and has not been tested for sleep apnea. GI: She has GERD/hiatal hernia but denies disorders of her liver gallbladder or exocrine pancreas. She was hospitalized at [facility] November 2018 with upper GI bleed. EGD showed large hiatal hernia without other acute findings. Colonoscopy was planned but postponed due to positive test for C. difficile. : She denies hematuria dysuria or kidney stones or other kidney or bladder disorders Neurologic: She denies large distribution strokes or seizures. Endocrine: She was diagnosed with DM 2 approximately 2001. She has hyperlipidemia but no known thyroid disease. Hematology/oncology: She had right breast CA 1996 with partial mastectomy which was apparently curative. She denies other internal malignancies. She has had iron deficiency anemia in the past. Psychiatric: She has anxiety and depression Musk skeletal: She had left hip replacement October 2017. She had pubic ramus fracture with acute care in swing bed stay [facility] October 2016. She has DJD but no known gout or osteoporosis or other bone joint or muscle disorders. - Constitutional Vitals: Temp Pulse Resp BP Pulse Ox 97.1 F L 111 16 199/103 94 02/03/19 07:37 02/03/19 07:37 02/03/19 07:37 02/03/19 07:37 02/03/19 07:37 Exam: Gen.: She is a well-developed well-nourished female resting comfortably in bed. She is slightly dyspneic. She denies pain by nodding her head no HEENT: Head is atraumatic and normocephalic. Eyes: EOMI. There is no scleral icterus. Mouth: She does not open her mouth well for examination. Neck: Supple and nontender. She has no pain on neck flexion. Heart: Tachycardic rate approximately 120/m. Lungs: No wheezes or crackles are heard. Abdomen: Soft and nontender. No masses or guarding are noted. Extremities: There is no cyanosis edema or clubbing noted. Dorsalis pedis and posterior tibial pulses are 1-2 over 2 bilaterally. Neurologic: Mental status: She is awake but does not speak. She follows a few commands but seems agitated. Cranial nerves: Facial movements appear symmetric. Forehead wrinkles bilaterally. EOMI. Motor: She moves her arms and legs well randomly without following commands. No further neurologic testing is attempted. Skin: Warm and dry Internal Med - H&P Results - Labs CBC & Chem 7: 02/03/19 06:22 02/03/19 06:22 Labs: Short CBC 02/02/19 02/03/19 Range/Units 16:34 06:22 WBC 6.3 8.4 (4.3-11.1) K/mcL Hgb 11.1 L 12.0 (11.5-15.4) g/dL Hct 36.1 38.8 (35.3-44.9) % Plt Count 262 311 (140-400) K/mcL Neutrophils # 4.8 5.9 (1.6-8.9) K/mcL BMP 02/02/19 02/03/19 16:34 06:22 Sodium 138 136 Potassium 4.0 3.8 Chloride 103 100 Carbon Dioxide 27 24 BUN 9 6 L Creatinine 0.75 0.67 Glucose 215 H 195 H Calcium 9.1 9.3 Cardiac Enzymes 02/02/19 Range/Units 16:34 Troponin I < 0.03 (< 0.04) ng/mL Liver Function 02/02/19 Range/Units 16:34 Total Bilirubin 0.4 (0.3-1.0) mg/dL Direct Bilirubin 0.1 (0.0-0.2) mg/dL AST 13 (13-39) Units/L ALT 11 (7-52) Units/L Alkaline Phosphatase 127 H (34-104) Units/L Albumin 3.7 (3.5-5.7) g/dL Urine 02/02/19 Range/Units 19:54 Urine Color Yellow (Yellow) Urine Clarity Clear (Clear) Urine pH 6.5 (5.0-8.0) pH Units Ur Specific Shirley 1.025 (1.010-1.025) Urine Protein >=300 H (Neg-Trace) mg/dL Urine Glucose (UA) 250 H (Normal) mg/dL - Impressions ITS Impressions Chest X-Ray 02/02/19 15:58 IMPRESSION: No acute process. Probable unchanged large hiatal hernia D/ / Mj Denney MD / Mj Denney MD Interpreting Provider: Mj Dennye MD Head CT 02/02/19 15:58 IMPRESSION: Motion limited study. No obvious acute intracranial abnormality. Chronic paranasal sinus disease. D/ / Efraín Gilbert MD / Efraín Gilbert MD Interpreting Provider: Efraín Gilbert MD
[2019-02-03] MEDS: 0.9 % Sodium Chloride 1,000 ML IVC SCH (11:13)
[2019-02-03] MEDS: 0.45 % Sodium Chloride w/KCl 20 MEQ/1,000 ML MLS IVC SCH ×2 (11:16→22:46)
[2019-02-03] MEDS ORDERED: Metoprolol XL (24 HR) Succ 50 MG TAB.ER.24H PO SCH (18:00)
[2019-02-04] MEDS: *HR* LORazepam 2 MG/ML VIAL IVP PRN (04:38)
[2019-02-04 05:52] LABS: Basophils % 0.5 %; Eosinophils # 0.1 K/mcL (0.0-0.6); Eosinophils % 1.8 %; Hematocrit 40.2 % (35.3-44.9); Hemoglobin 12.6 g/dL (11.5-15.4); Immature Granulocytes % 0.5 % (0-4); Lymphocytes # 1.4 K/mcL (0.6-4.6); Lymphocytes % 19.2 %; Mean Corpuscular HGB Conc 31.3 g/dL (31.6-35.5); Mean Corpuscular Hemoglobin 24.3 pg (28.0-33.3); Mean Corpuscular Volume 77.6 fL (83.0-100.0); Mean Platelet Volume 9.1 fL (9.4-12.4); Monocytes # 0.7 K/mcL (0.0-1.3); Monocytes % 9.5 %; Platelet Count 275 K/mcL (140-400); Red Blood Count 5.18 M/mcL (3.82-4.97); Red Cell Distribution Width 24.1 % (11.5-14.5); Segmented Neutrophils % 68.5 %; White Blood Count 7.3 K/mcL (4.3-11.1)
[2019-02-04 06:19] LABS: BUN/Creatinine Ratio 10 (6-26); Blood Urea Nitrogen 7 mg/dL (8-23); Calcium 9.1 mg/dL (8.6-10.3); Carbon Dioxide 18 mEq/L (23-29); Chloride 101 mEq/L (98-107); Glucose 188 mg/dL (70-105); Magnesium 1.4 mg/dL (1.6-2.6); Osmolality,Calculated 283 (280-300); Potassium 3.7 mEq/L (3.5-5.1); Sodium 135 mEq/L (136-145); eGFR For African Americans > 60 (> 60); eGFR For Non-African Americans > 60 (> 60)
[2019-02-04] MEDS ORDERED: *HR* Metoprolol 5 MG/5 ML VIAL IVP SCH (07:00)
[2019-02-04 07:42] LABS: Anisocytosis 1+ (Not Present); Platelet Clumps Few (Not Present); Platelet Estimate Normal (Normal)
[2019-02-04 07:44] LABS: Microcytosis Present (Not Present)
[2019-02-04 08:57] LABS: % Iron Saturation 7 % (15-50); Iron 22 mcg/dL (50-170); Transferrin 210 mg/dL (203-362)
[2019-02-04] MEDS: levETIRAcetam 250 MG TABLET PO SCH ×2 (09:13→19:54)
[2019-02-04 09:15] LABS: Ferritin 27 ng/mL (10-120)
[2019-02-04] MEDS: 0.45 % Sodium Chloride w/KCl 20 MEQ/1,000 ML MLS IVC SCH ×2 (09:17→17:25)
[2019-02-04 09:21] LABS: Folate 21.4 ng/mL (3.0-16.0)
--- NOTE | 2019-02-04 09:53 | Internal Med Progress Note ---
Date of Encounter: 02/04/19 Time of Encounter: 09:45 - Assessment and plan (1) Altered mental status Current Visit: Yes Status: Acute Assessment and plan: February 04. Improved. Continue present Rx and reassess tomorrow. Qualifiers: Altered mental status type: delirium Qualified Code(s): R41.0 - Disorientation, unspecified (2) Type 2 diabetes mellitus Current Visit: No Status: Chronic Assessment and plan: February 04. Hemoglobin A1c 6.9% on 05/29/2018. Continue Accu-Cheks with SSI. Qualifiers: Diabetes mellitus internal wholesaler insulin use: unspecified internal wholesaler insulin use status Diabetes mellitus complication status: without complication Qualified Code(s): E11.9 - Type 2 diabetes mellitus without complications (3) Hypertension Current Visit: No Status: Chronic Assessment and plan: February 04. She is agreeable to take oral pills. Metoprolol be changed from IV to 100 mg by mouth twice a day. Qualifiers: Hypertension type: essential hypertension Qualified Code(s): I10 - Essential (primary) hypertension (4) Anemia Current Visit: No Status: Acute Assessment and plan: February 04. Anemia testing showed iron 22, transferrin saturation 7%, transferrin 210, ferritin 27, B12 355, and folate 21.4. MCV is 77.6 but hemoglobin normal at 12.6. Start ferrous sulfate with ascorbic acid Qualifiers: Anemia type: iron deficiency Iron deficiency anemia type: unspecified iron deficiency Qualified Code(s): D50.9 - Iron deficiency anemia, unspecified (5) Hypomagnesemia Current Visit: Yes Status: Acute Assessment and plan: February 04. Magnesium level remains 1.4. Start oral magnesium oxide and monitor. - Subjective Interval history: February 04. She has no new complaints. She denies dyspnea. She admits she took a single Percocet from a leftover prescription prior to coming to the hospital. - Constitutional Vitals: Temp Pulse Resp BP Pulse Ox 98.4 F 112 16 167/90 96 02/04/19 06:43 02/04/19 06:43 02/04/19 06:43 02/04/19 06:43 02/04/19 06:43 Exam: She is resting comfortably in bed and appears in no acute distress. She is able to answer a few questions. She does not know her age, date of , day of the week or month of the year. She knows her location and recognizes me from previous encounters. Internal Medicine: Result - Labs CBC & Chem 7: 02/04/19 05:26 02/04/19 05:26 Labs: Short CBC 02/04/19 Range/Units 05:26 WBC 7.3 (4.3-11.1) K/mcL Hgb 12.6 (11.5-15.4) g/dL Hct 40.2 (35.3-44.9) % Plt Count 275 (140-400) K/mcL Neutrophils # 5.0 (1.6-8.9) K/mcL BMP 02/04/19 05:26 Sodium 135 L Potassium 3.7 Chloride 101 Carbon Dioxide 18 L BUN 7 L Creatinine 0.73 Glucose 188 H Calcium 9.1 - ABG Interpretation ABG results: PT/INR, D-dimer PT 10.4 Seconds (9.4-12.1) 02/02/19 16:34 Consult Discharge Plan - Plan Referrals: Janie Cadena, ELECTRICAL INSTALLER [Primary Care Provider] - 1 week
[2019-02-04] MEDS: Magnesium Oxide 400 MG TABLET PO SCH ×2 (10:33→19:56)
[2019-02-05] MEDS: Ascorbic Acid 500 MG TABLET PO SCH (04:57)
[2019-02-05 06:24] LABS: Basophils # 0.1 K/mcL (0.0-0.2); Basophils % 0.8 %; Eosinophils # 0.3 K/mcL (0.0-0.6); Eosinophils % 3.4 %; Hematocrit 40.6 % (35.3-44.9); Immature Granulocytes % 1.1 % (0-4); Lymphocytes # 2.1 K/mcL (0.6-4.6); Lymphocytes % 27.9 %; Mean Corpuscular Hemoglobin 24.8 pg (28.0-33.3); Mean Corpuscular Volume 77.5 fL (83.0-100.0); Mean Platelet Volume 9.1 fL (9.4-12.4); Monocytes # 0.6 K/mcL (0.0-1.3); Monocytes % 8.7 %; Neutrophils # 4.3 K/mcL (1.6-8.9); Platelet Count 340 K/mcL (140-400); Red Blood Count 5.24 M/mcL (3.82-4.97); Red Cell Distribution Width 23.3 % (11.5-14.5); Segmented Neutrophils % 58.1 %; White Blood Count 7.4 K/mcL (4.3-11.1)
[2019-02-05 06:38] LABS: Alanine Aminotransferase 10 Units/L (7-52); Albumin/Globulin Ratio 1.3 (1.1-2.2); Alkaline Phosphatase 113 Units/L (34-104); Aspartate Amino Transferase 13 Units/L (13-39); BUN/Creatinine Ratio 15 (6-26); Bilirubin,Total 0.4 mg/dL (0.3-1.0); Blood Urea Nitrogen 11 mg/dL (8-23); Calcium 9.5 mg/dL (8.6-10.3); Carbon Dioxide 20 mEq/L (23-29); Chloride 102 mEq/L (98-107); Globulin 3.2 g/dL (2.4-3.5); Glucose 202 mg/dL (70-105); Osmolality,Calculated 279 (280-300); Potassium 4.2 mEq/L (3.5-5.1); Sodium 132 mEq/L (136-145); Total Protein 7.2 g/dL (6.4-8.9); eGFR For African Americans > 60 (> 60); eGFR For Non-African Americans > 60 (> 60)
[2019-02-05] MEDS: 0.45 % Sodium Chloride w/KCl 20 MEQ/1,000 ML MLS IVC SCH (07:35)
[2019-02-05] MEDS: levETIRAcetam 250 MG TABLET PO SCH ×2 (08:01→19:56)
[2019-02-05] MEDS: Magnesium Oxide 400 MG TABLET PO SCH ×2 (08:01→19:55)
--- NOTE | 2019-02-05 09:55 | Internal Med Progress Note ---
Date of Encounter: 02/05/19 Time of Encounter: 09:45 - Assessment and plan (1) Altered mental status Current Visit: Yes Status: Acute Assessment and plan: February 04. Improved. Continue present Rx and reassess tomorrow. February 05. Slightly improved. She is fully awake and alert now. MMSE will be ordered. Qualifiers: Altered mental status type: delirium Qualified Code(s): R41.0 - Disorientation, unspecified (2) Type 2 diabetes mellitus Current Visit: No Status: Chronic Assessment and plan: February 04. Hemoglobin A1c 6.9% on 05/29/2018. Continue Accu-Cheks with SSI. Qualifiers: Diabetes mellitus skilled nursing insulin use: unspecified local intermodal truck driver insulin use status Diabetes mellitus complication status: without complication Qualified Code(s): E11.9 - Type 2 diabetes mellitus without complications (3) Hypertension Current Visit: No Status: Chronic Assessment and plan: February 04. She is agreeable to take oral pills. Metoprolol be changed from IV to 100 mg by mouth twice a day. February 05. Blood pressure slightly improved but still above desirable range. Add amlodipine 5 mg daily. Qualifiers: Hypertension type: essential hypertension Qualified Code(s): I10 - Essential (primary) hypertension (4) Anemia Current Visit: No Status: Acute Assessment and plan: February 04. Anemia testing showed iron 22, transferrin saturation 7%, transferrin 210, ferritin 27, B12 355, and folate 21.4. MCV is 77.6 but hemoglobin normal at 12.6. Start ferrous sulfate with ascorbic acid Qualifiers: Anemia type: iron deficiency Iron deficiency anemia type: unspecified iron deficiency Qualified Code(s): D50.9 - Iron deficiency anemia, unspecified (5) Hypomagnesemia Current Visit: Yes Status: Acute Assessment and plan: February 04. Magnesium level remains 1.4. Start oral magnesium oxide and monitor. February 05. Check magnesium level in a.m. - Subjective Interval history: February 04. She has no new complaints. She denies dyspnea. She admits she took a single Percocet from a leftover prescription prior to coming to the hospital. February 05. She has no new complaints. - Constitutional Vitals: Temp Pulse Resp BP Pulse Ox 98.5 F 79 16 172/98 96 02/05/19 06:24 02/05/19 06:24 02/05/19 06:24 02/05/19 06:24 02/05/19 06:24 Exam: She is sitting on the side of bed resting comfortably. She knows my name and her age but not the year. She thinks she is in an apartment building in [place] at present time. She states she lives with her [id number]. I reviewed her medications and lab results. Internal Medicine: Result - Labs CBC & Chem 7: 02/05/19 06:08 02/05/19 06:08 Labs: Short CBC 02/05/19 Range/Units 06:08 WBC 7.4 (4.3-11.1) K/mcL Hgb 13.0 (11.5-15.4) g/dL Hct 40.6 (35.3-44.9) % Plt Count 340 (140-400) K/mcL Neutrophils # 4.3 (1.6-8.9) K/mcL BMP 02/05/19 06:08 Sodium 132 L Potassium 4.2 Chloride 102 Carbon Dioxide 20 L BUN 11 Creatinine 0.72 Glucose 202 H Calcium 9.5 Liver Function 02/05/19 Range/Units 06:08 Total Bilirubin 0.4 (0.3-1.0) mg/dL AST 13 (13-39) Units/L ALT 10 (7-52) Units/L Alkaline Phosphatase 113 H (34-104) Units/L Albumin 4.0 (3.5-5.7) g/dL - ABG Interpretation ABG results: PT/INR, D-dimer PT 10.4 Seconds (9.4-12.1) 02/02/19 16:34 Consult Discharge Plan - Plan Referrals: Janie Cadena, DEFLECTOR OPERATOR [Primary Care Provider] - 1 week
[2019-02-05] MEDS: *HR* Enoxaparin 40 MG/0.4 ML SYRINGE SQ SCH (10:51)
[2019-02-05] MEDS: amLODIPine 5 MG TABLET PO SCH (10:51)
[2019-02-05 14:31] LABS: Estimated Average Glucose 232 mg/dl
[2019-02-06] MEDS: Ascorbic Acid 500 MG TABLET PO SCH (05:18)
[2019-02-06] MEDS: *HR* Enoxaparin 40 MG/0.4 ML SYRINGE SQ SCH (05:19)
[2019-02-06 07:40] LABS: Basophils # 0.1 K/mcL (0.0-0.2); Basophils % 0.6 %; Eosinophils # 0.3 K/mcL (0.0-0.6); Eosinophils % 3.5 %; Hematocrit 43.1 % (35.3-44.9); Hemoglobin 13.8 g/dL (11.5-15.4); Immature Granulocytes % 1.1 % (0-4); Lymphocytes # 1.7 K/mcL (0.6-4.6); Lymphocytes % 21.2 %; Mean Corpuscular Hemoglobin 24.8 pg (28.0-33.3); Mean Corpuscular Volume 77.4 fL (83.0-100.0); Mean Platelet Volume 9.6 fL (9.4-12.4); Monocytes # 0.6 K/mcL (0.0-1.3); Monocytes % 7.9 %; Neutrophils # 5.3 K/mcL (1.6-8.9); Platelet Count 346 K/mcL (140-400); Red Blood Count 5.57 M/mcL (3.82-4.97); Red Cell Distribution Width 22.9 % (11.5-14.5); Segmented Neutrophils % 65.7 %; White Blood Count 8.1 K/mcL (4.3-11.1)
[2019-02-06 08:38] LABS: BUN/Creatinine Ratio 17 (6-26); Blood Urea Nitrogen 12 mg/dL (8-23); Calcium 9.7 mg/dL (8.6-10.3); Carbon Dioxide 19 mEq/L (23-29); Chloride 100 mEq/L (98-107); Glucose 207 mg/dL (70-105); Magnesium 1.4 mg/dL (1.6-2.6); Osmolality,Calculated 280 (280-300); Potassium 3.8 mEq/L (3.5-5.1); Sodium 132 mEq/L (136-145); eGFR For African Americans > 60 (> 60); eGFR For Non-African Americans > 60 (> 60)
--- NOTE | 2019-02-06 09:45 | Internal Med Progress Note ---
Date of Encounter: 02/06/19 Time of Encounter: 09:35 - Assessment and plan (1) Altered mental status Current Visit: Yes Status: Acute Assessment and plan: February 04. Improved. Continue present Rx and reassess tomorrow. February 05. Slightly improved. She is fully awake and alert now. MMSE will be ordered. February 06. MMSE score of 9/30. Referral to SNF has been made. Qualifiers: Altered mental status type: delirium Qualified Code(s): R41.0 - Disorientation, unspecified (2) Type 2 diabetes mellitus Current Visit: No Status: Chronic Assessment and plan: February 04. Hemoglobin A1c 6.9% on 05/29/2018. Continue Accu-Cheks with SSI. Qualifiers: Diabetes mellitus termite inspector insulin use: unspecified termite inspector insulin use status Diabetes mellitus complication status: without complication Qualified Code(s): E11.9 - Type 2 diabetes mellitus without complications (3) Hypertension Current Visit: No Status: Chronic Assessment and plan: February 04. She is agreeable to take oral pills. Metoprolol be changed from IV to 100 mg by mouth twice a day. February 05. Blood pressure slightly improved but still above desirable range. Add amlodipine 5 mg daily. Qualifiers: Hypertension type: essential hypertension Qualified Code(s): I10 - Essential (primary) hypertension (4) Anemia Current Visit: No Status: Acute Assessment and plan: February 04. Anemia testing showed iron 22, transferrin saturation 7%, transferrin 210, ferritin 27, B12 355, and folate 21.4. MCV is 77.6 but hemoglobin normal at 12.6. Start ferrous sulfate with ascorbic acid Qualifiers: Anemia type: iron deficiency Iron deficiency anemia type: unspecified iron deficiency Qualified Code(s): D50.9 - Iron deficiency anemia, unspecified (5) Hypomagnesemia Current Visit: Yes Status: Acute Assessment and plan: February 04. Magnesium level remains 1.4. Start oral magnesium oxide and mon itor. February 05. Check magnesium level in a.m. February 06. Magnesium level unchanged 1.4. Continue present Rx and monitor labs. - Subjective Interval history: February 04. She has no new complaints. She denies dyspnea. She admits she took a single Percocet from a leftover prescription prior to coming to the hospital. February 05. She has no new complaints. February 06. She has no new complaints. - Constitutional Vitals: Temp Pulse Resp BP Pulse Ox 98.6 F 81 14 169/95 95 02/06/19 07:33 02/06/19 07:33 02/06/19 07:33 02/06/19 07:33 02/06/19 07:33 Exam: She is sitting on the side of bed resting currently. She now knows her age and location. She has tangentiality in conversation. Heart is regular without murmurs or gallops. She has quadrigeminal ectopy. Lungs are clear. I reviewed her medications and lab results. Internal Medicine: Result - Labs CBC & Chem 7: 02/06/19 07:26 02/06/19 07:26 Labs: Short CBC 02/06/19 Range/Units 07:26 WBC 8.1 (4.3-11.1) K/mcL Hgb 13.8 (11.5-15.4) g/dL Hct 43.1 (35.3-44.9) % Plt Count 346 (140-400) K/mcL Neutrophils # 5.3 (1.6-8.9) K/mcL BMP 02/06/19 07:26 Sodium 132 L Potassium 3.8 Chloride 100 Carbon Dioxide 19 L BUN 12 Creatinine 0.69 Glucose 207 H Calcium 9.7 - ABG Interpretation ABG results: PT/INR, D-dimer PT 10.4 Seconds (9.4-12.1) 02/02/19 16:34 Consult Discharge Plan - Plan Referrals: Janie Cadena, PRODUCTION SKI REPAIRER [Primary Care Provider] - 1 week
[2019-02-06] MEDS: amLODIPine 5 MG TABLET PO SCH (10:07)
[2019-02-06] MEDS: levETIRAcetam 250 MG TABLET PO SCH ×2 (10:07→22:25)
[2019-02-06] MEDS: Magnesium Oxide 400 MG TABLET PO SCH ×2 (10:07→22:25)
[2019-02-06] MEDS: *HR* LORazepam 2 MG/ML VIAL IVP PRN (10:08)
[2019-02-06] MEDS: ALPRAZolam 0.25 MG TABLET PO PRN (16:36)
[2019-02-06] MEDS: Loratadine 10 MG TABLET PO SCH ×2 (16:36→16:46)
[2019-02-06 22:22] LABS: Adenovirus Not Detected (Not Detect); Bordetella Pertussis Not Detected (Not Detect); Chlamydophila pneumoniae Not Detected (Not Detect); Coronavirus 229E Not Detected (Not Detect); Coronavirus HKU1 Not Detected (Not Detect); Coronavirus NL63 Not Detected (Not Detect); Coronavirus OC43 Not Detected (Not Detect); Human Metapneumovirus Not Detected (Not Detect); Human Rhinovirus/Enterovirus Not Detected (Not Detect); Influenza A Subtype 2009 H1 Not Detected (Not Detect); Influenza A Untypeable Not Detected (Not Detect); Influenza B Not Detected (Not Detect); Mycoplasma pneumoniae Not Detected (Not Detect); Parainfluenza Virus 1 Not Detected (Not Detect); Parainfluenza Virus 2 Not Detected (Not Detect); Parainfluenza Virus 3 Not Detected (Not Detect); Parainfluenza Virus 4 Not Detected (Not Detect); Respiratory Syncytial Virus Not Detected (Not Detect)
[2019-02-07] MEDS: Ascorbic Acid 500 MG TABLET PO SCH (05:42)
[2019-02-07] MEDS: *HR* Enoxaparin 40 MG/0.4 ML SYRINGE SQ SCH (05:43)
[2019-02-07] MEDS: levETIRAcetam 250 MG TABLET PO SCH ×2 (10:54→21:07)
[2019-02-07] MEDS: ALPRAZolam 0.25 MG TABLET PO PRN ×2 (10:54→22:21)
[2019-02-07] MEDS: amLODIPine 5 MG TABLET PO SCH (10:55)
[2019-02-07] MEDS: Magnesium Oxide 400 MG TABLET PO SCH ×2 (10:55→21:07)
[2019-02-07] MEDS: Loratadine 10 MG TABLET PO SCH (10:55)
--- NOTE | 2019-02-07 11:13 | Internal Med Progress Note ---
Date of Encounter: 02/07/19 Time of Encounter: 11:05 - Assessment and plan (1) Altered mental status Current Visit: Yes Status: Acute Assessment and plan: February 04. Improved. Continue present Rx and reassess tomorrow. February 05. Slightly improved. She is fully awake and alert now. MMSE will be ordered. February 06. MMSE score of 9/30. Referral to SNF has been made. Qualifiers: Altered mental status type: delirium Qualified Code(s): R41.0 - Disorientation, unspecified (2) Type 2 diabetes mellitus Current Visit: No Status: Chronic Assessment and plan: February 04. Hemoglobin A1c 6.9% on 05/29/2018. Continue Accu-Cheks with SSI. Qualifiers: Diabetes mellitus exterminator helper insulin use: unspecified exterminator helper insulin use status Diabetes mellitus complication status: without complication Qualified Code(s): E11.9 - Type 2 diabetes mellitus without complications (3) Hypertension Current Visit: No Status: Chronic Assessment and plan: February 04. She is agreeable to take oral pills. Metoprolol be changed from IV to 100 mg by mouth twice a day. February 05. Blood pressure slightly improved but still above desirable range. Add amlodipine 5 mg daily. February 07. Blood pressure remained above desirable range. Add lisinopril. Qualifiers: Hypertension type: essential hypertension Qualified Code(s): I10 - Essential (primary) hypertension (4) Hypomagnesemia Current Visit: Yes Status: Acute Assessment and plan: February 04. Magnesium level remains 1.4. Start oral magnesium oxide and monitor. February 05. Check magnesium level in a.m. February 06. Magnesium level unchanged 1.4. Continue present Rx and monitor labs. (5) Microcytosis Current Visit: Yes Status: Chronic Assessment and plan: February 07. Anemia testing showed iron 22, transferrin saturation 7%, transferrin 210, ferritin 27, B12 355, and folate 21.4. MCV is 77.6 but hemoglobin normal at 12.6. Continue ferrous sulfate with ascorbic acid - Subjective Interval history: February 04. She has no new complaints. She denies dyspnea. She admits she took a single Percocet from a leftover prescription prior to coming to the hospital. February 05. She has no new complaints. February 06. She has no new complaints. February 07. She has no new complaints - Constitutional Vitals: Temp Pulse Resp BP Pulse Ox 97.8 F 73 16 164/93 93 02/07/19 07:00 02/07/19 07:00 02/07/19 07:00 02/07/19 07:00 02/07/19 07:00 Exam: She is sitting on the side of bed resting comfortably. Her affect is overall cheerful. I reviewed her medications and lab results. Internal Medicine: Result - Labs CBC & Chem 7: 02/06/19 07:26 02/06/19 07:26 - ABG Interpretation ABG results: PT/INR, D-dimer PT 10.4 Seconds (9.4-12.1) 02/02/19 16:34 Consult Discharge Plan - Plan Referrals: Janie Cadena, PROPERTY MANAGEMENT BOOKKEEPER [Primary Care Provider] - 1 week
[2019-02-07] MEDS: *HR* LORazepam 2 MG/ML VIAL IVP PRN (21:07)
[2019-02-07] MEDS ORDERED: ALPRAZolam 0.5 MG TABLET PO ONE (21:45)
[2019-02-07] MEDS ORDERED: *HR* LORazepam 2 MG/ML VIAL IM STA (22:42)
[2019-02-08] MEDS: Ascorbic Acid 500 MG TABLET PO SCH (05:46)
[2019-02-08] MEDS: *HR* Enoxaparin 40 MG/0.4 ML SYRINGE SQ SCH (05:46)
[2019-02-08] MEDS: levETIRAcetam 250 MG TABLET PO SCH (11:59)
[2019-02-08] MEDS: Magnesium Oxide 400 MG TABLET PO SCH (11:59)
[2019-02-08] MEDS: Loratadine 10 MG TABLET PO SCH (11:59)
[2019-02-08] MEDS: ALPRAZolam 0.25 MG TABLET PO PRN (11:59)
[2019-02-08] MEDS: amLODIPine 5 MG TABLET PO SCH (11:59)
[2019-02-08 13:07] VITALS: BP 158/84
--- NOTE | 2019-02-08 14:28 | Discharge Summary ---
Date of Encounter: 02/08/19 Time of Encounter: 14:45 - Discharge Diagnosis (1) Altered mental status Priority: Primary Status: Resolved Qualifiers: Altered mental status type: delirium Qualified Code(s): R41.0 - Disorientation, unspecified (2) Dementia Priority: Secondary Status: Chronic Qualifiers: Dementia type: unspecified type Dementia behavioral disturbance: without behavioral disturbance Qualified Code(s): F03.90 - Unspecified dementia without behavioral disturbance (3) Type 2 diabetes mellitus Priority: Secondary Status: Chronic Qualifiers: Diabetes mellitus manager intermediate insulin use: unspecified mcfp insulin use status Diabetes mellitus complication status: without complication Qualified Code(s): E11.9 - Type 2 diabetes mellitus without complications (4) Hypertension Priority: Secondary Status: Chronic Qualifiers: Hypertension type: essential hypertension Qualified Code(s): I10 - Essential (primary) hypertension (5) Hypomagnesemia Priority: Secondary Status: Acute (6) Microcytosis Priority: Secondary Status: Chronic Hospital course: Ms. Jackman is a 63 year old female who was brought to emergency room after family found her confused at home. She reported in emergency room she has had a cough but could not give significant additional history. She was admitted to [facility] for ongoing care needs. Initial orders were written by the emergency room physician. I saw her on February 03 and performed a history and physical. She was given IV fluids and monitored. She had gradual return to her baseline mental status. MMSE showed a score of 9/30. It was felt she was not safe at this time to return home to independent living. Arrangements were complete on February 08 for her to be discharged to [facility]. Hemoglobin A1c returned elevated at 9.7%. Basal insulin will be adjusted to 25 units daily and blood sugars will be monitored at the [facility]. Magnesium level returned low at 1.4. She was started on supplemental magnesium oxide and this will be continued at the senior care. Microcytosis workup showed iron 22, transferrin saturation 7%, transferrin 210, and ferritin 27. She was started on oral ferrous sulfate with ascorbic acid and this will be continued at the [facility]. B12 and folate levels were acceptable at 355 and 21.4 respectively. Blood pressure improved on higher dose metoprolol and addition of amlodipine. On February 08 she was accepted for admission at [facility]. - Time Spent with Patient Total time spent providing and/or coordinating discharge services: - Discharge Medications Prescriptions: New Ferrous Sulfate 325 mg PO DAILY@0630 tablet Metoprolol Succinate 100 mg PO BID 365 Days tab.er.24h amLODIPine [Norvasc] 5 mg PO DAILY tablet Ascorbic Acid [Vitamin C] 500 mg PO DAILY@0630 tablet ALPRAZolam [Xanax 0.25 MG Tablet] 0.25 mg PO Q8H 30 Days #90 tablet Magnesium Oxide [Mag-Ox] 400 mg PO BID tablet Quetiapine Fumarate [SEROquel] 25 mg PO HS 365 Days tablet Continued LevETIRAcetam [Keppra] 500 mg PO BID Paroxetine HCl [Paxil] 40 mg PO QAM Amitriptyline [Elavil] 50 mg PO HS Aspirin [Adult Aspirin Regimen] 81 mg PO QAM Clopidogrel [Plavix] 75 mg PO DAILY Insulin ASPART [Novolog Flexpen] 0 unit SQ TIDAC Atorvastatin [Lipitor] 40 mg PO DAILY Changed Insulin Glargine,Hum.rec.anlog [Basaglar Kwikpen U-100] 25 unit SQ DAILY 365 Days Discontinued Cyclobenzaprine HCl 5 mg PO BID PRN PRN Reason: Muscle Pain Gabapentin [Neurontin] 600 mg PO TID Metoprolol Succinate [Toprol Xl] 50 - 75 mg PO BID Omeprazole [PriLOSEC] 40 mg PO QAM Furosemide [Lasix] 20 mg PO QAM Levocetirizine Dihydrochloride [Allergy Relief (Xyzal)] 5 mg PO QPM PRN PRN Reason: Allergy Symptoms Metoprolol Succinate [Toprol Xl] 50 mg PO QPM Ferrous Gluconate 324 mg PO DAILY Home Medications: Atorvastatin [Lipitor] 40 mg PO DAILY 01/07/17 [History] LevETIRAcetam [Keppra] 500 mg PO BID 05/18/18 [History] Paroxetine HCl [Paxil] 40 mg PO QAM 05/18/18 [History] Amitriptyline [Elavil] 50 mg PO HS 12/02/18 [History] Aspirin [Adult Aspirin Regimen] 81 mg PO QAM 12/02/18 [History] Clopidogrel [Plavix] 75 mg PO DAILY 12/02/18 [History] Insulin ASPART [Novolog Flexpen] 0 unit SQ TIDAC 12/02/18 [History] ALPRAZolam [Xanax 0.25 MG Tablet] 0.25 mg PO Q8H 30 Days #90 tablet 02/08/19 [Rx] Ascorbic Acid [Vitamin C] 500 mg PO DAILY@0630 tablet 02/08/19 [Rx] Ferrous Sulfate 325 mg PO DAILY@0630 tablet 02/08/19 [Rx] Insulin Glargine,Hum.rec.anlog [Basaglar Kwikpen U-100] 25 unit SQ DAILY 365 Days 02/08/19 [Rx] Magnesium Oxide [Mag-Ox] 400 mg PO BID tablet 02/08/19 [Rx] Metoprolol Succinate 100 mg PO BID 365 Days tab.er.24h 02/08/19 [Rx] Quetiapine Fumarate [SEROquel] 25 mg PO HS 365 Days tablet 02/08/19 [Rx] amLODIPine [Norvasc] 5 mg PO DAILY tablet 02/08/19 [Rx] Allergies/Adverse Reactions: Allergy/AdvReac Type Severity Reaction Status Date / Time Penicillins [PCN] Allergy Hives Verified 05/18/18 09:16 rivaroxaban [From Xarelto] Allergy See Verified 05/18/18 09:16 Comments morphine AdvReac See Verified 05/18/18 09:16 Comments NSAIDS (Non-Steroidal AdvReac Palpitation Verified 05/18/18 09:16 Anti-Inflamma s oxycodone [Oxycodone] AdvReac Confusion Verified 05/20/18 05:25 Date of admission: 02/05/19 10:06 Primary care physician: Janie Cadena CNP Consults: 02/02/19 23:36 Consult to Terrapin Fisher [CONS] Stat Reason for SW Consult: new onset AMS 02/05/19 09:50 Consult to Occupational Therapy [CONS] Routine Comment: Evaluate, develop and implement POC Reason for Consult: Weakness Does patient have active BEDREST order?: No Is patient medically & hemodynamically stable?: Yes Patient assessed for mobility or mobilized this visit?: Yes Consult to Physical Therapy [CONS] Routine Comment: Evaluate, develop and implement POC Reason for Consult: Weakness Does patient have active BEDREST order?: No Is patient medically & hemodynamically stable?: Yes Patient assessed for mobility or mobilized this visit?: Yes - Constitutional Vitals: Temp Pulse Resp BP Pulse Ox 98.5 F 74 16 158/84 95 02/08/19 12:56 02/08/19 12:56 02/08/19 12:56 02/08/19 12:56 02/08/19 12:56 - Patient Status Disposition: Transfer SNF Condition: Good - Discharge Instructions - Diet and Activity Activity: as per physical therapy Diet: diabetic diet
--- NOTE | 2019-02-08 14:49 | Physician Discharge Referral ---
ExtendedCare Referral Info Transfer To: [facility] Provider in Charge: Santo Provider in Charge after Transfer: PCP (Santo) - Diagnosis (1) Altered mental status Priority: Primary Status: Resolved (2) Dementia Priority: Secondary Status: Chronic (3) Type 2 diabetes mellitus Priority: Secondary Status: Chronic (4) Hypertension Priority: Secondary Status: Chronic (5) Hypomagnesemia Priority: Secondary Status: Acute (6) Microcytosis Priority: Secondary Status: Chronic Prognosis: Fair Aware of Diagnosis: Patient Aware of Prognosis: Patient - Transfer Medications Prescriptions: Metoprolol Succinate 100 mg PO BID 365 Days tab.er.24h Quetiapine Fumarate [SEROquel] 25 mg PO HS 365 Days tablet ALPRAZolam [Xanax 0.25 MG Tablet] 0.25 mg PO Q8H 30 Days #90 tablet Home Medications: Atorvastatin [Lipitor] 40 mg PO DAILY 01/07/17 [History] LevETIRAcetam [Keppra] 500 mg PO BID 05/18/18 [History] Paroxetine HCl [Paxil] 40 mg PO QAM 05/18/18 [History] Amitriptyline [Elavil] 50 mg PO HS 12/02/18 [History] Aspirin [Adult Aspirin Regimen] 81 mg PO QAM 12/02/18 [History] Clopidogrel [Plavix] 75 mg PO DAILY 12/02/18 [History] Insulin ASPART [Novolog Flexpen] 0 unit SQ TIDAC 12/02/18 [History] ALPRAZolam [Xanax 0.25 MG Tablet] 0.25 mg PO Q8H 30 Days #90 tablet 02/08/19 [Rx] Ascorbic Acid [Vitamin C] 500 mg PO DAILY@0630 tablet 02/08/19 [Rx] Ferrous Sulfate 325 mg PO DAILY@0630 tablet 02/08/19 [Rx] Insulin Glargine,Hum.rec.anlog [Basaglar Kwikpen U-100] 25 unit SQ DAILY 365 Days 02/08/19 [Rx] Magnesium Oxide [Mag-Ox] 400 mg PO BID tablet 02/08/19 [Rx] Metoprolol Succinate 100 mg PO BID 365 Days tab.er.24h 02/08/19 [Rx] Quetiapine Fumarate [SEROquel] 25 mg PO HS 365 Days tablet 02/08/19 [Rx] amLODIPine [Norvasc] 5 mg PO DAILY tablet 02/08/19 [Rx] Allergies/Adverse Reactions: Allergy/AdvReac Type Severity Reaction Status Date / Time Penicillins [PCN] Allergy Hives Verified 05/18/18 09:16 rivaroxaban [From Xarelto] Allergy See Verified 05/18/18 09:16 Comments morphine AdvReac See Verified 05/18/18 09:16 Comments NSAIDS (Non-Steroidal AdvReac Palpitation Verified 05/18/18 09:16 Anti-Inflamma s oxycodone [Oxycodone] AdvReac Confusion Verified 05/20/18 05:25 - Respiratory Orders Smoking Cessation: Smoking cessation has been advised. For more information, call the [employer] Tobacco Quit Line at 6-512-SBUE-NOW. - Lab Orders Lab Orders: Other (include drug levels w/frequency) (CBC with differential, BMP, magnesium, iron profile, ferritin level in one week and every 3 months.) - Advance Directives Code Status: Full Code - Mobility Orders Ambulate - Rehabiliation Orders Rehab Potential: Fair Rehab Orders: Evaluation for Physical Therapy, Evaluation for Occupational Therapy - Diet Orders Regular CERTIFICATION: I certify that the transfer of the above named patient to an Extended Care Facility is necessary for the continuing treatment of the diagnosis listed. The above information is true and accurate reflection of patient's current condition. Confidential - Redisclosure prohibited without a patient's written consent.
== END 2019-02-08 15:22 | DRG 948 ==
LOC: EMEROOPIK 15:55 → INPPIK 15:55
PROVIDERS: ADMIT Internal Medicine; ATTEND Internal Medicine

== ENCOUNTER 2019-04-09 03:23 | Observation (INO) ==
[2019-04-09 03:56] LABS: Basophils % 0.3 %; Eosinophils # 0.1 K/mcL (0.0-0.6); Eosinophils % 1.1 %; Hemoglobin 12.1 g/dL (11.5-15.4); Immature Granulocytes % 0.4 % (0-4); Lymphocytes # 0.9 K/mcL (0.6-4.6); Lymphocytes % 7.2 %; Mean Corpuscular Hemoglobin 27.7 pg (28.0-33.3); Mean Corpuscular Volume 89.2 fL (83.0-100.0); Mean Platelet Volume 9.5 fL (9.4-12.4); Monocytes # 0.6 K/mcL (0.0-1.3); Monocytes % 4.9 %; Neutrophils # 11.1 K/mcL (1.6-8.9); Platelet Count 305 K/mcL (140-400); Red Blood Count 4.37 M/mcL (3.82-4.97); Red Cell Distribution Width 17.5 % (11.5-14.5); Segmented Neutrophils % 86.1 %; White Blood Count 12.9 K/mcL (4.3-11.1)
[2019-04-09 03:59] LABS: ABG Base Excess 2 mEq/L (-2 to 3); ABG HCO3 29 mEq/L (21-27); ABG Oxygen Saturation 89 % (95-98); ABG PCO2 58 mmHg (35-45); ABG PH 7.31 pH Units (7.32-7.45); ABG PO2 64 mmHg (85-104); ABG TCO2 31 mEq/L (20-26)
[2019-04-09 04:01] LABS: INR 0.9; Prothrombin Time 10.4 Seconds (9.4-12.1)
[2019-04-09 04:04] LABS: Activated Partial Thrombo Time 26.7 Seconds (26.0-36.0)
[2019-04-09 04:09] LABS: Bilirubin,Urine Negative (Negative); Blood,Urine Trace-intact (Negative); Clarity,Urine Clear (Clear); Color,Urine Yellow (Yellow); Glucose,Urine (UA) Normal (Normal); Ketones,Urine Negative (Negative); Leukocyte Esterase,Urine Small (Negative); Nitrite,Urine Negative (Negative); PH,Urine 5.5 pH Units (5.0-8.0); Protein,Urine 30 mg/dL (Neg-Trace); Urobilinogen,Urine Normal (Normal)
[2019-04-09 04:12] LABS: Alanine Aminotransferase 12 Units/L (7-52); Albumin 4.4 g/dL (3.5-5.7); Albumin/Globulin Ratio 1.3 (1.1-2.2); Alkaline Phosphatase 160 Units/L (34-104); Aspartate Amino Transferase 15 Units/L (13-39); BUN/Creatinine Ratio 22 (6-26); Bilirubin,Direct 0.1 mg/dL (0.0-0.2); Bilirubin,Indirect 0.4 mg/dL (0.0-1.0); Bilirubin,Total 0.5 mg/dL (0.3-1.0); Blood Urea Nitrogen 37 mg/dL (8-23); Calcium 9.7 mg/dL (8.6-10.3); Carbon Dioxide 32 mEq/L (23-29); Chloride 97 mEq/L (98-107); Ethanol < 10 mg/dL (Less than 10); Globulin 3.5 g/dL (2.4-3.5); Glucose 201 mg/dL (70-105); Osmolality,Calculated 294 (280-300); Potassium 4.9 mEq/L (3.5-5.1); Sodium 135 mEq/L (136-145); Total Protein 7.9 g/dL (6.4-8.9); eGFR For African Americans 37 (> 60); eGFR For Non-African Americans 30 (> 60)
[2019-04-09] MEDS ORDERED: Ipratropium/Albuterol Neb 3 ML IH ONE (04:12)
[2019-04-09 04:13] LABS: Troponin I < 0.03 ng/mL (< 0.04)
[2019-04-09 04:30] LABS: Amphetamine Screen,Urine Negative ng/mL (Cutoff=1000); Barbiturate Screen,Urine Negative ng/mL (Cutoff=200); Benzodiazepines Screen,Urine Positive ng/mL (Cutoff=200); Cannabinoid Screen,Urine Negative ng/mL (Cutoff = 50); Cocaine Screen,Urine Negative ng/mL (Cutoff= 300); Opiate Screen,Urine Negative ng/mL (Cutoff=300); Phencyclidine Screen,Urine Negative ng/mL (Cutoff=25)
[2019-04-09 04:36] LABS: Bacteria,Urine Moderate per hpf (None-Few); Squamous Epithelial Cell,Urine Few per lpf (None-Few)
[2019-04-09] MEDS ORDERED: Azithromycin 500 MG in D5% in Water 250 ML IVPB ONE ×2 (05:10→06:39)
[2019-04-09] MEDS ORDERED: Naloxone 0.4 MG/ML INJ IVP PRN (06:39)
[2019-04-09] MEDS ORDERED: Mag Hydrox/Al Hydrox/Simeth 30 ML UDC PO PRN (06:39)
[2019-04-09] MEDS ORDERED: D5% in Water 1,000 ML IVC PRN (06:39)
[2019-04-09] MEDS ORDERED: Ondansetron ODT 4 MG TAB.RAPDIS SL PRN (06:39)
[2019-04-09] MEDS ORDERED: *HR* Dextrose 50 % in Water (Vial) 50 ML VIAL IVP PRN (06:39)
[2019-04-09] MEDS ORDERED: Dextrose Gel 15 GM/37.5 ML TUBE PO PRN ×2 (06:39)
[2019-04-09] MEDS ORDERED: Acetaminophen 325 MG TABLET PO PRN (06:39)
[2019-04-09] MEDS ORDERED: Insulin DETEMIR 100 UNIT/ML X5UNITS SQ SCH (09:00)
[2019-04-09] MEDS: Magnesium Oxide 400 MG TABLET PO SCH ×3 (09:39→19:43)
[2019-04-09] MEDS: Gabapentin 300 MG CAPSULE PO SCH ×4 (09:39→19:44)
[2019-04-09] MEDS: ALPRAZolam 0.25 MG TABLET PO SCH ×4 (09:39→19:45)
[2019-04-09] MEDS: levETIRAcetam 250 MG TABLET PO SCH ×3 (09:40→19:43)
[2019-04-09] MEDS: Aspirin Enteric Coated 81 MG Tablet PO SCH ×2 (09:40→12:28)
[2019-04-09] MEDS: Bumetanide 1 MG TABLET PO SCH ×2 (09:41→12:28)
[2019-04-09] MEDS: Metoprolol XL (24 HR) Succ 50 MG TAB.ER.24H PO SCH ×3 (09:42→19:43)
[2019-04-09] MEDS: Nystatin POWDER 30 GM BOTTLE TP SCH ×3 (09:43→19:44)
[2019-04-09] MEDS: Insulin LISPRO 300 UNITS/3 ML VIAL SQ SCH ×3 (09:59→16:46)
[2019-04-09] MEDS ORDERED: Lactobacillus 1 EACH CAP.SPRINK PO SCH (21:00)
[2019-04-10 05:13] LABS: Basophils % 0.3 %; Eosinophils # 0.2 K/mcL (0.0-0.6); Eosinophils % 1.7 %; Hematocrit 32.3 % (35.3-44.9); Immature Granulocytes % 0.3 % (0-4); Lymphocytes # 1.4 K/mcL (0.6-4.6); Lymphocytes % 12.2 %; Mean Corpuscular Hemoglobin 27.5 pg (28.0-33.3); Mean Platelet Volume 9.5 fL (9.4-12.4); Monocytes # 0.6 K/mcL (0.0-1.3); Monocytes % 5.5 %; Neutrophils # 9.4 K/mcL (1.6-8.9); Platelet Count 261 K/mcL (140-400); Red Blood Count 3.63 M/mcL (3.82-4.97); Red Cell Distribution Width 17.2 % (11.5-14.5); White Blood Count 11.7 K/mcL (4.3-11.1)
[2019-04-10 05:31] LABS: BUN/Creatinine Ratio 30 (6-26); Blood Urea Nitrogen 28 mg/dL (8-23); Carbon Dioxide 31 mEq/L (23-29); Chloride 100 mEq/L (98-107); Glucose 148 mg/dL (70-105); Osmolality,Calculated 290 (280-300); Potassium 4.2 mEq/L (3.5-5.1); Sodium 136 mEq/L (136-145); eGFR For African Americans > 60 (> 60); eGFR For Non-African Americans > 60 (> 60)
[2019-04-10] MEDS: ALPRAZolam 0.25 MG TABLET PO SCH (05:42)
[2019-04-10 06:44] VITALS: BP 154/73
[2019-04-10] MEDS ORDERED: cefTRIAXone 1,000 MG in Water for inj. (sterile) 10 ML IVP SCH (09:00)
[2019-04-10] MEDS ORDERED: Azithromycin 500 MG in 0.9 % Sodium Chloride 250 ML IVPB SCH (09:00)
== END 2019-04-10 10:28 ==
LOC: EMEROOPIK 03:23 → INPPIK 03:23
PROVIDERS: ADMIT Internal Medicine; ATTEND Internal Medicine